=== PATIENT | male | born 1940 | race Caucasian/White ===

== ENCOUNTER → 2017-02-20 | Outpatient (CLI) | payer OTHER, MEDICARE ==
[~2017-02-20] MED LIST: APIX1TAB3 PO; ASPEC325 PO; ATOR-22 PO; CHOL100010 PO; FINA5TAB PO; LISI-729 PO; Lupron IM; METO25TA3 PO; METO50TA7 PO; MULT-506 PO; OMEG10007 PO
[2017-02-20 13:36] VITALS: BP 143/83; PULSE 84; TEMP 36.8; O2SAT 94
[2017-02-20 14:24] LABS: URINE APPEARANCE CLEAR (CLEAR); URINE BILIRUBIN NEG (NEG); URINE COLOR DK YELLOW; URINE NITRITE NEG (NEG); URINE PH 6.5 (4.5-7.5); URINE SPECIFIC GRAVITY 1.021 (1.000-1.030); UROBILINOGEN POS (NEG)
[2017-02-20 14:25] LABS: MANUAL MICROSCOPIC REQUIRED? NO; REVIEW REQ? NO
--- NOTE | 2017-02-20 15:16 | Radiation Oncology Follow-Up ---
Radiation Oncology Follow-Up Date of Visit Feb 20, 2017. Reason For Visit 6 month follow-up Radiation Completion Date Hormonal suppression;Seed implant on 06/08/14;RT 09/10/14 Diagnosis (1) Prostate cancer Status: Resolved Onset Date: 04/05/2014 Location: both lobes of the prostate Histology Subtype: adenocarcinoma Stage: ll (biopsy stage) Permanent Comment: Status post biopsy 04/05/2014 revealing adenocarcinoma [place] score 3+4, 4+3, and 4+4 Hormone suppression with Lupron initiated 05/04/2014 Status post prostate seed implant as boost 06/08/2014 utilizing cesium 131 and received 8500 cGy Status post IMRT/IGRT completed 09/10/2014 received 5040 cGy Plan total androgen deprivation for 12-18 months. Last Edited By: Zenobia Musa on Apr 06, 2015 15:31 Interim History He developed some urinary symptoms approximately 3 weeks ago. He stated this began as a burning discomfort that was quite severe. It happened with each time he had urination. He was current concerned that me may have passed a seed from a prior seed implant. He did not actually see a seed. He did not have any gross hematuria. He had [id number] Azo which she had previously taken while under going radiation therapy. This did relieve the discomfort. Discomfort has steadily improved and is nearly resolved. He's had no fever or chills. He has developed intermittent rectal bleeding. This is bright red in color. He reviewed this with Dr. Guzman. He has been scheduled for a colonoscopy. This will be performed on 03/15/2017. His last PSA was 2015. This was 0.060. Allergies Coded Allergies: No Known Allergies (Unverified , 06/08/14) Home Medications Scheduled Apixaban (Eliquis), 5 MG PO BID Aspirin (Aspirin *), 325 MG PO DAILY Atorvastatin (Lipitor), 20 MG PO DAILY Cholecalciferol (Vitamin D), 2,000 INTER.UNIT PO DAILY Finasteride (Proscar), 5 MG PO DAILY Fish Oil ([place]-3), 1 CAP PO BID Lisinopril (Prinivil), 2 MG PO BID Metoprolol Succ (Toprol Xl) (Toprol-Xl), 1 TAB PO BID Multivitamin (Multivitamin), 1 TAB PO DAILY Review of Systems Gastrointestinal: Symptoms: Constipation, Rectal Bleeding GI Comments: Constipation manageable at home;Takes stool softner w/relief; Oral: Symptoms: No Problems Respiratory: Symptoms: WNL Urinary: Comments: See below notations; Skin: Symptoms: No Problems Physical Exam Vital Signs Date Time Temp Pulse Resp B/P (MAP) Pulse Ox O2 Delivery O2 Flow Rate FiO2 02/20/17 13:36 36.8 84 20 143/83 94 Pain: Patient Pain Scale: 0 - 10 Initial Pain Intensity: 0.0 Fatigue: None General Appearance: no apparent distress Eyes: normal inspection, EOMI ENT: normal ENT inspection, hearing grossly normal Neck: no adenopathy, thyroid normal Respiratory/Chest: lungs clear, no respiratory distress, no accessory muscle use Cardiovascular: regular rate, rhythm, no gallop, no murmur Abdomen: non tender, soft, no organomegaly Anal / Rectum: Deferred. Patient stated he had recently had a rectal examination by Dr. Guzman 3 weeks ago. Extremities: no pedal edema Neurologic/Psychiatric: no motor/sensory deficits, alert, normal mood/affect Skin: warm/dry Laboratory Studies Test 11/29/16 11:22 02/20/17 14:00 02/20/17 14:06 Prothrombin Time 10.7 SECONDS (9.0-12.0) Prothrombin Time INR 1.0 (0.9-1.1) PTT 38.3 SECONDS (21.0-31.0) Partial Thromboplastin Ratio 1.5 PT Mixing Studies Interpretation PTT Mixing Studies Interpretation FACTOR INHIBITOR Lupus Anticoagulant see note Lupus Anticoagulant PTT 55 sec (<=40) Dilute Uvaldo Viper Venom (Lupus) 71 sec (<=45) Lupus Anticoag DRVVT Mix Ratio NOT CORRECTED (CORRECTED) dRVVT Mix Interpretation Positive Hexagonal Phase Confirmation Negative (Negative) Phospholipid Neutralization Positive (Negative) Urine Color DK YELLOW Urine Appearance CLEAR (CLEAR) Urine pH 6.5 (4.5-7.5) Urine Specific [place] 1.021 (1.000-1.030) Urine Protein NEG (NEG) Urine Glucose (UA) NEG (NEG) Urine Ketones NEG (NEG) Urine Occult Blood NEG (NEG) Urine Nitrite NEG (NEG) Urine Bilirubin NEG (NEG) Urine Urobilinogen POS (NEG) Urine Leukocyte Esterase NEG (NEG) Prostate Specific Antigen 0.621 ng/ml (0.000-4.000) Assessment & Plan Plan: PSA was drawn today. He'll and notified as to the results. He'll be undergoing the evaluation with the colonoscopy on March 15. We discussed that he may have radiation proctitis. We will await the final results. 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 He'll be notified as to results. He'll continue regular follow-up with Dr. Guzman. We asked him to return to our office in 1 year. We'll plan a PSA in 6 months. I'll send an order with his test results. Total Time In Follow-Up I spent 20 minutes speaking to the patient performing examination. I spent 15 minutes reviewing information in completing this note. Copy To Diamond Guzman M.D.
== END | disposition home or self-care (01) ==
LOC: C.ONC 13:10
PROVIDERS: ATTEND Physician Assistant Medical
DX: Z08 Encounter for follow-up examination after completed treatment for malignant neoplasm (principal); Z92.3 Personal history of irradiation; Z85.46 Personal history of malignant neoplasm of prostate

== ENCOUNTER 2018-12-08 06:50 | Inpatient (IN) ==
[2018-12-08] MEDS ORDERED: SODIUM CHLORIDE 0.9% 500 ML IV SCH (07:15)
--- NOTE | 2018-12-08 07:30 | Emergency Department Note ---
Entered by Monica Tirado acting as a scribe for Sony Singh MD History of Present Illness General Chief complaint: Altered Mental Status Stated complaint: ALTERED MENTAL STATUS Time Seen by Provider: 12/08/18 06:59 Source: patient and EMS Mode of arrival: EMS Limitations: no limitations History of Present Illness Provider complaint: AMS Onset (ago): day(s) (a few) Location: head Pain Consistency: + other (worsening) Quality: + other (confusion) Associated symptoms: + denies other symptoms (numbness, back pain, urinary) and + confusion; no chest pain, no cough, no headaches, no shortness of breath and no weakness The patient is a 78 year old male who presents to the Emergency Room via EMS for an evaluation of altered mental status. EMS reports that the patients family states that he has been confused for some time and that this has worsened over t he past few days. The patient notes that he does have a history of metastasized prostate cancer. He denies any back pain, headaches, numbness, weakness, urinary symptoms, chest pain or shortness of breath. He states that he did experience a fall recently while in the shower. He notes that he is currently on Xarelto. He denies any hematochezia or coughs. He also denies any recently alcohol use. Per EMS note, the patients blood sugar level was 141 en route. Home Medications Home Medications Medication Instructions Recorded Confirmed Type aspirin [Aspir-Low] 81 mg PO QAM 10/27/18 12/08/18 History atorvastatin 20 mg PO HS 10/27/18 12/08/18 History cholecalciferol (vitamin D3) 1,000 unit PO QAM 10/27/18 12/08/18 History multivitamin 1 tab PO QAM 10/27/18 12/08/18 History omega 9-mbz-sho-fish oil [Fish Oil] 1 cap PO BID 10/27/18 12/08/18 History amlodipine 2.5 mg PO QAM 11/16/18 12/08/18 History lisinopril 20 mg PO HS 11/16/18 12/08/18 History apixaban 2.5 mg tablet 5 mg PO BID 11/25/18 12/08/18 History oxycodone 10 mg tablet 10 mg PO Q4H PRN tab 11/25/18 12/08/18 History fentanyl 50 mcg/hr transdermal 1 patch TD Q72H 12/01/18 12/08/18 History patch acetaminophen [Tylenol Extra 500 mg PO Q6H PRN 12/08/18 12/08/18 History Strength] metoprolol tartrate 50 mg PO BID 12/08/18 12/08/18 History prednisone 20 mg PO BID 12/08/18 12/08/18 History Allergies Allergy/AdvReac Type Severity Reaction Status Date / Time No Known Allergies Allergy Verified 12/08/18 08:30 Past Med/Surg History Medical History AAA (abdominal aortic aneurysm) 3.3 cm infrarenal on 01/22/17 Aneurysm of heart FOLLOWS WITH DR. BASURTO>ANEURYSM "SMALL" Atrial fibrillation Cancer PROSTATE-RADIATION SEEDS Gout Hyperlipidemia Hypertension Lung mass NOTED FROM DR. 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/2 VESSELS REPAIR IN [facility] History of repair of rotator cuff LEFT History of tooth extraction Family History Other No significant family history Social History Preferred Language: Spanish Communication Ability: Effective Visual Impairment: No Limitations Beliefs That Will Affect Care: None Current Living Situation: Spouse Feels Safe at Home: Yes Smoking Status: Unknown if ever smoked Hx Alcohol Use: Yes Alcohol type: beer and wine Review of Systems See HPI for pertinent positives & negatives. and A total of 10 systems reviewed and were otherwise negative Physical Exam Vital Signs Vital Signs - 24 hr 12/08/18 06:56 12/08/18 06:59 12/08/18 07:00 Temperature Temperature Source Sepsis Recent Fever Within 48 Hours Sepsis Action Taken by Nursing Pulse Rate 87 95 H 92 H Pulse Rate from SpO2 Sensor 91 H 90 Pulse Rhythm Pulse Strength Respiratory Rate 17 29 H 17 Respiratory Effort / Characteristics Respiratory Depth Respiratory Pattern Blood Pressure 135/83 Blood Pressure Mean 100 Blood Pressure Position Pulse Oximetry 93 86 L Oxygen Delivery Method 12/08/18 07:01 12/08/18 07:30 12/08/18 07:58 Temperature 36.7 C Temperature Source Oral Sepsis Recent Fever Within 48 Hours No Sepsis Action Taken by Nursing No Action Required Pulse Rate 98 H 91 H 92 H Pulse Rate from SpO2 Sensor 93 H 96 H 85 Pulse Rhythm Regular Pulse Strength Normal Respiratory Rate 33 H 16 16 Respiratory Effort / Characteristics Non-Labored Spontaneous Respiratory Depth Normal Respiratory Pattern Regular Blood Pressure 123/92 120/85 Blood Pressure Mean 102 96 Blood Pressure Position Lying Pulse Oximetry 93 96 95 Oxygen Delivery Method Room Air 12/08/18 08:00 12/08/18 08:01 12/08/18 08:30 Temperature Temperature Source Sepsis Recent Fever Within 48 Hours Sepsis Action Taken by Nursing Pulse Rate 91 H 88 92 H Pulse Rate from SpO2 Sensor 91 H 90 89 Pulse Rhythm Pulse Strength Respiratory Rate 22 14 12 Respiratory Effort / Characteristics Respiratory Depth Respiratory Pattern Blood Pressure 135/86 Blood Pressure Mean 102 Blood Pressure Position Pulse Oximetry 91 95 96 Oxygen Delivery Method 12/08/18 08:31 12/08/18 09:00 12/08/18 09:01 Temperature Temperature Source Sepsis Recent Fever Within 48 Hours Sepsis Action Taken by Nursing Pulse Rate 89 99 H 102 H Pulse Rate from SpO2 Sensor 94 H 100 H 101 H Pulse Rhythm Pulse Strength Respiratory Rate 12 20 13 Respiratory Effort / Characteristics Respiratory Depth Respiratory Pattern Blood Pressure 124/73 142/103 H Blood Pressure Mean 90 116 Blood Pressure Position Pulse Oximetry 95 97 88 L Oxygen Delivery Method General: Non-ill appearing older male in no acute distress. HEENT: Normal cephalic atraumatic. Pupils are equal round and reactive to light. Extraocular movements are intact. Oropharynx is pink with moist mucous membranes. No swelling of the mouth lips or tongue. Neck: Supple with a midline trachea. No meningeal signs or stiffness, no JVD or bruits. No Stridor. Chest: Clear to auscultation bilaterally. No wheezes or rhonchi. No increased work of breathing. Heart: regular rate and rhythm. Abdomen: Soft nontender, nondistended without rebound guarding or rigidity. Extremities: No cyanosis clubbing or edema. No calf tenderness or asymmetry Spine/Back. Non tender to palpation. No CVA tenderness Skin: Good turgor without rashes. Neurologic exam: Cranial nerves two through 12 are intact. Motor and sensation are intact and symmetrical throughout. Answers some questions appropriately. Does not know the date. Does seem confused. Course 0703: Past medical records reviewed. The patient was evaluated in room B7. A complete history and physical examination was performed. 0750: The patient is in CT. I spoke with the patients daughter who reports that the patient has been increasingly confused to the point where he tried to leave the house in the middle of the night to go to work. She explains that they are unable to care for him. 0828: I discussed the patient's case with Dr. Pablo Wolfe Hospitalist. He will evaluate the patient for further management. Administered Medications Acetaminophen (Tylenol) 500 mg PO Q6H PRN PRN Reason: Pain Stop: 01/07/19 11:07 Last Admin: 12/08/18 12:21 Dose: 500 mg Documented by: [id number] Calcium Carbonate (Tums) 500 mg PO DAILY PRN PRN Reason: Indigestion Stop: 01/07/19 13:24 Last Admin: 12/08/18 13:28 Dose: 500 mg Documented by: [id number] Lidocaine (Lidoderm 5%) 1 patch TD QAM TONY Stop: 01/07/19 12:29 Last Admin: 12/08/18 13:50 Dose: 1 patch Documented by: [id number] Discontinued Medications Sodium Chloride (Nss) 500 mls @ 999 mls/hr IV .Q31M TONY Stop: 12/08/18 07:45 Last Infusion: 12/08/18 08:36 Dose: 0 mls/hr Documented by: [id number] Admin: 12/08/18 07:39 Dose: 999 mls/hr Documented by: [id number] Medical Decision Making Differential Diagnosis Differential diagnosis includes: cancer complication, trauma, intracranial process, infection, cardiac disease, electrolyte and metabolic abnormality. Medical Records Attestation: I reviewed the patient's medical records. Home Medications Current Medication List: was personally reviewed by me Laboratory Data Attestation: I reviewed the patient's lab results. Result diagrams: 12/08/18 07:37 12/08/18 07:37 Lab Results 12/08/18 12/08/18 12/08/18 Range/Units 07:37 07:37 07:37 WBC 8.50 (4.8-10.8) K/uL RBC 5.09 (4.7-6.1) M/uL Hgb 16.1 (14.0-18.0) g/dL Hct 44.1 (42-52) % MCV 86.6 (80-100) fL MCH 31.6 (25-34) pg MCHC 36.5 H (32-36) g/dL RDW Std Deviation 45.7 (36.4-46.3) fL RDW Coeff of [place] 14.4 (11.5-14.5) % Plt Count 277 (130-400) K/uL MPV 9.3 (7.4-10.4) fL Immature Gran % (Auto) 0.6 % Neut % (Auto) 77.4 % Lymph % (Auto) 7.5 % [place] % (Auto) 12.4 % Eos % (Auto) 1.9 % Baso % (Auto) 0.2 % Immature Gran # (Auto) 0.05 H (0.00-0.02) K/uL Neut # (Auto) 6.58 H (1.4-6.5) K/uL Lymph # (Auto) 0.64 L (1.2-3.4) K/uL [place] # (Auto) 1.05 H (0.11-0.59) K/uL Eos # (Auto) 0.16 (0-0.5) K/uL Baso # (Auto) 0.02 (0-0.2) K/uL ESR (0-14) mm/hr PT 10.5 (9.0-12.0) Seconds INR 1.0 (0.9-1.1) APTT 27.9 (21.0-31.0) Seconds PTT Ratio 1.0 Sodium 141 (136-145) mmol/L Potassium 3.8 (3.5-5.1) mmol/L Chloride 106 (98-107) mmol/L Carbon Dioxide 28 (21-32) mmol/L Anion Gap 7.0 (3-11) BUN 15 (7-18) mg/dl Creatinine 0.86 (0.6-1.4) mg/dl Est Cr Clr Drug Dosing 76.6 ml/min Est GFR ( Amer) 96.9 Est GFR (Non-Af Amer) 83.6 BUN/Creatinine Ratio 17.2 (10-20) Glucose 85 (70-99) mg/dl Uric Acid (2.6-7.2) mg/dl Calcium 10.2 H (8.5-10.1) mg/dl Magnesium 2.4 (1.8-2.4) mg/dl Total Bilirubin 1.0 (0.2-1) mg/dl AST 24 (15-37) U/L ALT 29 (12-78) U/L Alkaline Phosphatase 78 (45-117) U/L Troponin I < 0.015 (0-0.045) ng/ml C-Reactive Protein (0-0.29) mg/dl Total Protein 8.1 (6.4-8.2) gm/dl Albumin 3.8 (3.4-5.0) gm/dl Globulin 4.3 H (2.5-4.0) gm/dl Albumin/Globulin Ratio 0.9 (0.9-2) TSH 1.360 (0.300-4.500) uIu/ml Urine Color Urine Appearance (Clear) Urine pH (4.5-7.5) Ur Specific [place] (1.000-1.030) Urine Protein (Negative) Urine Glucose (UA) (Negative) Urine Ketones (Negative) Urine Blood (Negative) Urine Nitrite (Negative) Urine Bilirubin (Negative) Urine Urobilinogen (Negative) Ur Leukocyte Esterase (Negative) 12/08/18 12/08/18 12/08/18 Range/Units 07:37 07:37 09:05 WBC (4.8-10.8) K/uL RBC (4.7-6.1) M/uL Hgb (14.0-18.0) g/dL Hct (42-52) % MCV (80-100) fL MCH (25-34) pg MCHC (32-36) g/dL RDW Std Deviation (36.4-46.3) fL RDW Coeff of [place] (11.5-14.5) % Plt Count (130-400) K/uL MPV (7.4-10.4) fL Immature Gran % (Auto) % Neut % (Auto) % Lymph % (Auto) % [place] % (Auto) % Eos % (Auto) % Baso % (Auto) % Immature Gran # (Auto) (0.00-0.02) K/uL Neut # (Auto) (1.4-6.5) K/uL Lymph # (Auto) (1.2-3.4) K/uL [place] # (Auto) (0.11-0.59) K/uL Eos # (Auto) (0-0.5) K/uL Baso # (Auto) (0-0.2) K/uL ESR 38 H (0-14) mm/hr PT (9.0-12.0) Seconds INR (0.9-1.1) APTT (21.0-31.0) Seconds PTT Ratio Sodium (136-145) mmol/L Potassium (3.5-5.1) mmol/L Chloride (98-107) mmol/L Carbon Dioxide (21-32) mmol/L Anion Gap (3-11) BUN (7-18) mg/dl Creatinine (0.6-1.4) mg/dl Est Cr Clr Drug Dosing ml/min Est GFR ( Amer) Est GFR (Non-Af Amer) BUN/Creatinine Ratio (10-20) Glucose (70-99) mg/dl Uric Acid 4.1 (2.6-7.2) mg/dl Calcium (8.5-10.1) mg/dl Magnesium (1.8-2.4) mg/dl Total Bilirubin (0.2-1) mg/dl AST (15-37) U/L ALT (12-78) U/L Alkaline Phosphatase (45-117) U/L Troponin I (0-0.045) ng/ml C-Reactive Protein 0.78 H (0-0.29) mg/dl Total Protein (6.4-8.2) gm/dl Albumin (3.4-5.0) gm/dl Globulin (2.5-4.0) gm/dl Albumin/Globulin Ratio (0.9-2) TSH (0.300-4.500) uIu/ml Urine Color Yellow Urine Appearance Clear (Clear) Urine pH 7.0 (4.5-7.5) Ur Specific [place] 1.022 (1.000-1.030) Urine Protein Negative (Negative) Urine Glucose (UA) Negative (Negative) Urine Ketones Negative (Negative) Urine Blood Negative (Negative) Urine Nitrite Negative (Negative) Urine Bilirubin Negative (Negative) Urine Urobilinogen Negative (Negative) Ur Leukocyte Esterase Negative (Negative) Imaging Data Radiologist's Impression: Radiology results as stated below per my review and the radiologist's interpretation: XR chest 1V portable CLINICAL HISTORY: weakness mental status change. Dyspnea. COMPARISON STUDY: 11/07/2018 FINDINGS: Moderate cardiomegaly. Prior median sternotomy. Subtle increase in density left base unchanged in the prior study. Slight increase in density right upper lung although this is improved from the prior study read IMPRESSION: 1. Slight decrease in volume of a right upper lobe mass. 2. Moderate stable cardiomegaly. 3. Increased density left base unchanged from the prior exam. The above report was generated using voice recognition software. It may contain grammatical, syntax or spelling errors. Electronically signed by: Anish Walker M.D. 12/08/2018 7:[address] head/brain wo con CT DOSE: 614.27 mGy.cm HISTORY: Mental status change ALTERED LOC TECHNIQUE: Multiaxial CT images of the head were performed without the use of intravenous contrast. A dose lowering technique was utilized adhering to the principles of ALARA. Comparison: None. Findings: The paranasal sinuses and mastoid air cells are clear. The calvarium and skull base are intact. The ventricles and sulci are within normal limits. There is no mass, hematoma, midline shift, or acute infarct. Mild age-related atrophy and chronic small vessel change. Impression: No acute intracranial abnormality. Age-related change. The above report was generated using voice recognition software. It may contain grammatical, syntax or spelling errors. Electronically signed by: Anish Walker M.D. 12/08/2018 7:59 AM ECG Data Attestation: I personally reviewed and interpreted this ECG as follows: Indication: altered mental status Rate (beats per minute): 93 Rhythm: atrial fibrillation Findings: + other (non-specific T wave abnormality); no acute ischemic change Comparison ECG Date: from (24-MAY-2014) Change: the following changes noted (a-fib has replaced sinus isidro) Blood Pressure Blood Pressure Findings: Normal blood pressure Blood Pressure Disposition: did not require urgent referral MDM Narrative This patient comes in as described above. He is being treated for prostate cancer with metastases to his back and bones. He was more confused today apparently he does tell me how he had radiation yesterday which was Saturday which I think is unlikely. he does answer some questions appropriately and he does not know the date so he does seem more confused. I have seen him before and I think this is different. He denies any fever or urinary symptoms. He is been having back and hip pain. he did apparently have an injection. He also told me he may have fallen yesterday and he is on Xarelto. He may have hit his head. There is no external signs of trauma I did do a CAT scan of his head. IV access established multiple blood testing was obtained EKG and urinalysis were also ordered. He was reassessed frequently. CAT scan of his head is unremarkable. EKG does not suggest acute coronary syndrome or significant arrhythmia he has no significant electrolyte or metabolic abnormalities. I talked to his daughter at length she is very concerned about him being at home and does not feel that he is safe. I do think he should be admitted/observe for altered mental status it could be related to medications or his prostate cancer or other etiology. I have consulted the [facility] hospitalist to see in the ER for these measures. Impression & Plan Altered mental status, Weakness, Prostate cancer Discharge Plan Visit Data *Final* Discharge Date/Time: 12/08/18 10:53 Chief Complaint: Altered Mental Status Stated Complaint: ALTERED MENTAL STATUS ED Provider: Sony Singh Discharge Problem: Altered mental status, Weakness, Prostate cancer Patient Disposition: Admitted As Inpatient Discharge Instructions Interventions: ED Discharge Assessment Last Done: 12/08/18 10:53 Discharge Problem: Altered mental status Qualifiers: Altered mental status type: unspecified Qualified Code(s): R41.82 - Altered mental status, unspecified The scribe's documentation has been prepared under my direction and personally reviewed by me in its entirety. I confirm that the note above accurately reflects all work, treatment, procedures, and medical decision making performed by me.
[2018-12-08 07:50] LABS: Basophils # (auto) 0.02 K/uL (0-0.2); Basophils % (auto) 0.2 %; Eosinophils # (auto) 0.16 K/uL (0-0.5); Eosinophils % (auto) 1.9 %; Hematocrit (blood only) 44.1 % (42-52); Hemoglobin 16.1 g/dL (14.0-18.0); Immature Granulocytes # (auto) 0.05 K/uL (0.00-0.02); Immature Granulocytes % (auto) 0.6 %; Lymphocytes # (auto) 0.64 K/uL (1.2-3.4); Lymphocytes % (auto) 7.5 %; Mean Corpuscular Hgb Conc 36.5 g/dL (32-36); Mean Corpuscular Volume 86.6 fL (80-100); Mean Platelet Volume 9.3 fL (7.4-10.4); Monocytes # (auto) 1.05 K/uL (0.11-0.59); Monocytes % (auto) 12.4 %; Neutrophils # (auto) 6.58 K/uL (1.4-6.5); Neutrophils % (auto) 77.4 %; Platelet Count 277 K/uL (130-400); RDW Coefficient of Variation 14.4 % (11.5-14.5); RDW Standard Deviation 45.7 fL (36.4-46.3); Red Blood Count 5.09 M/uL (4.7-6.1)
--- NOTE | 2018-12-08 08:01 | CT Scan Report ---
CT head/brain wo con CT DOSE: 614.27 mGy.cm HISTORY: Mental status change ALTERED LOC TECHNIQUE: Multiaxial CT images of the head were performed without the use of intravenous contrast. A dose lowering technique was utilized adhering to the principles of ALARA. Comparison: None. Findings: The paranasal sinuses and mastoid air cells are clear. The calvarium and skull base are int act. The ventricles and sulci are within normal limits. There is no mass, hematoma, midline shift, or acute infarct. Mild age-related atrophy and chronic small vessel change. Impression: No acute intracranial abnormality. Age-related change. The above report was generated using voice recognition software. It may contain grammatical, syntax or spelling errors. Electronically signed by: Anish Walker M.D. 12/08/2018 7:59 AM
[2018-12-08 08:02] LABS: Partial Thromboplastin Time 27.9 Seconds (21.0-31.0); Prothrombin Time 10.5 Seconds (9.0-12.0)
[2018-12-08 08:06] LABS: Alanine Aminotransferase 29 U/L (12-78); Albumin Level 3.8 gm/dl (3.4-5.0); Aspartate Aminotransferase 24 U/L (15-37); BUN Creatinine Ratio 17.2 (10-20); Blood Urea Nitrogen 15 mg/dl (7-18); Calcium 10.2 mg/dl (8.5-10.1); Carbon Dioxide 28 mmol/L (21-32); Chloride 106 mmol/L (98-107); Creatinine Clr Calc Pharmacy 76.6 ml/min; Est GFR (African American) 96.9; Est GFR (Non-African American) 83.6; Glucose 85 mg/dl (70-99); Magnesium 2.4 mg/dl (1.8-2.4); Potassium 3.8 mmol/L (3.5-5.1); Sodium 141 mmol/L (136-145)
[2018-12-08 08:17] LABS: Albumin Globulin Ratio 0.9 (0.9-2); Alkaline Phosphatase 78 U/L (45-117); Globulin 4.3 gm/dl (2.5-4.0); Total Protein 8.1 gm/dl (6.4-8.2); Troponin I < 0.015 ng/ml (0-0.045)
[2018-12-08 09:36] LABS: Appearance Urine Clear (Clear); Bilirubin Urine Negative (Negative); Blood Urine Negative (Negative); Color Urine Yellow; Glucose Urine UA Negative (Negative); Ketones Urine Negative (Negative); Leukocyte Esterase Urine Negative (Negative); Nitrite Urine Negative (Negative); Protein Urine Negative (Negative); Specific Gravity Urine 1.022 (1.000-1.030); Urobilinogen Urine Negative (Negative)
[2018-12-08 09:40] LABS: C Reactive Protein 0.78 mg/dl (0-0.29); Uric Acid 4.1 mg/dl (2.6-7.2)
--- NOTE | 2018-12-08 09:43 | History & Physical Report ---
Date of Service December 08, 2018 Assessment & Plan (1) Altered mental status: -presentation for progressive changes in mental status -CT head negative for stroke -rule out infections by sending urine analysis and blood cultures -dementia workup: send labs B12, folic acid levels, RPR -send ESR and CRP however these may be high given history of malignancy -check uric acid -minimize home dose narcotic medications for now and titrate as needed to minimize delirium and sedation Malignancy Chart review shows -Hx: prostate CA -Metastatic non-small lung CA -Recent RUL mass with invasion to R 4th rib. 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 -hold off radiation treatments for now -check uric acid levels in case of tumor lysis syndrome as a cause of mental status changes -consult patient's oncology service if any further recommendations or history about malignancy -minimize home dose narcotic medications for now and titrate as needed to minimize delirium and sedation Chronic atrial fibrillation -continue BID apixaban -continue home dose metoprolol and statin Hypertension -blood pressure controlled -continue home dose lisinopril PT/OT evaluations DVT ppx: apixaban Full Code History of Present Illness Chief Complaint: altered mental status Primary Care Provider: Diamond Guzman This is a 78 year old male who follows with primary acre doctor Dr. Guzman with malignancy who follows with Dr. Justice for cancer treatment and was actually due for radiatio treatment on 12/08/18 at [facility]. Patient's daughter Karen [phone] brought patient in with concerns that patient has been having progressive changes in mental status. Reports that patient lives with who has disability. Reports that patient has been having periods of confusion such as reporting that he is seeing things that are not there, more forgetful, trying to leave the house to go to work when he does not have work. Daughter reports that patient has been retired from month from work 1 month ago. Patient insists he is still employed. Patient reports that the year is 1998 instead of 2018. He knows the month is November. When asked who is the vice president of contracts, patient does not recall and then says he has trouble with remembering names. CT head on admission is negative for stroke. Patient does not appear to have gross motor deficits on exam. At baseline, patient's daughter reports that he uses cane or walker and not very mobile at home. Patient denies fever. denies acute pain. patient is awake and cooperative on exam. denies problems with urination or with bowel movements. denies vomiting Allergies Allergy/AdvReac Type Severity Reaction Status Date / Time No Known Allergies Allergy Verified 12/08/18 08:30 Home Medications Home Medications Medication Instructions Recorded Confirmed Type aspirin [Aspir-Low] 81 mg PO QAM 10/27/18 12/08/18 History atorvastatin 20 mg PO HS 10/27/18 12/08/18 History cholecalciferol (vitamin D3) 1,000 unit PO QAM 10/27/18 12/08/18 History multivitamin 1 tab PO QAM 10/27/18 12/08/18 History omega 7-pik-odp-fish oil [Fish Oil] 1 cap PO BID 10/27/18 12/08/18 History amlodipine 2.5 mg PO QAM 11/16/18 12/08/18 History lisinopril 20 mg PO HS 11/16/18 12/08/18 History apixaban 2.5 mg tablet 5 mg PO BID 11/25/18 12/08/18 History oxycodone 10 mg tablet 10 mg PO Q4H PRN tab 11/25/18 12/08/18 History fentanyl 50 mcg/hr transdermal 1 patch TD Q72H 12/01/18 12/08/18 History patch acetaminophen [Tylenol Extra 500 mg PO Q6H PRN 12/08/18 12/08/18 History Strength] metoprolol tartrate 50 mg PO BID 12/08/18 12/08/18 History prednisone 20 mg PO BID 12/08/18 12/08/18 History Past Med/Surg History Medical History AAA (abdominal aortic aneurysm) 3.3 cm infrarenal on 01/22/17 Aneurysm of heart FOLLOWS WITH DR. BASURTO>ANEURYSM "SMALL" Atrial fibrillation Cancer PROSTATE-RADIATION SEEDS Gout Hyperlipidemia Hypertension Lung mass NOTED FROM DR. 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/2 VESSELS REPAIR IN [facility] History of repair of rotator cuff LEFT History of tooth extraction Family History Other No significant family history Social History Preferred Language: Tunisian Communication Ability: Effective Visual Impairment: No Limitations Beliefs That Will Affect Care: None Current Living Situation: Spouse Feels Safe at Home: Yes Smoking Status: Unknown if ever smoked Hx Alcohol Use: Yes Alcohol type: beer, wine and hard liquor Hx Substance Use: No Review of Systems Review of Systems: All systems reviewed & are unremarkable except as noted in HPI & below Physical Exam Constitutional: well developed Eyes: PERRL, conjunctivae normal, anicteric sclerae EOM intact bilaterally ENMT: external ear and nose normal, oropharynx normal Neck: trachea midline, no thyromegaly normal visual inspection Respiratory: normal respiratory effort, lungs clear to auscultation Cardiovascular: Rate/Rhythm: + tachycardic and + irregularly irregular Gastrointestinal (Abdomen): normal bowel sounds, soft, nontender, no hepatosplenomegaly Musculoskeletal: Head/Neck/Chest: normocephalic and head atraumatic Neurologic: PERRL, EOMI, accommodation nl, no face palsy, no dysarthria Psychiatric: Orientation: alert, oriented to place and cooperative Results & Data Vital Signs (Past 12 Hours) Vital Signs Temp Pulse Resp BP Pulse Ox 12/08/18 09:00 99 H 20 97 12/08/18 08:31 89 12 124/73 95 12/08/18 08:30 92 H 12 96 12/08/18 08:01 88 14 135/86 95 12/08/18 08:00 91 H 22 91 12/08/18 07:58 92 H 16 120/85 95 12/08/18 07:30 91 H 16 96 12/08/18 07:01 36.7 C 98 H 33 H 123/92 93 12/08/18 07:00 92 H 17 12/08/18 06:59 95 H 29 H 86 L 12/08/18 06:56 87 17 135/83 93 (1) Altered mental status Altered mental status type: unspecified Qualified Code(s): R41.82 - Altered mental status, unspecified
[2018-12-08 10:57] LABS: Folate (Folic Acid) > 24.00 ng/ml (>5.38); Vitamin B12 721 pg/ml (211-911)
[2018-12-08] MEDS: ACETAMINOPHEN 500 MG TAB PO PRN (12:21)
[2018-12-08] MEDS ORDERED: CALCIUM CARBONATE 500 MG CHEWABLE TAB PO PRN (13:25)
[2018-12-08] MEDS: LIDOCAINE 5% 1 PATCH TD SCH (13:50)
[2018-12-08] MEDS ORDERED: OXYCODONE HCL IR 5 MG TAB (IMMEDIATE RELEASE) PO PRN (16:09)
[2018-12-08] MEDS ORDERED: HALOPERIDOL LACTATE 5 MG/ML 1 ML VIAL IV STA (17:40)
[2018-12-08] MEDS ORDERED: HALOPERIDOL LACTATE 5 MG/ML 1 ML VIAL IM ONE (17:52)
[2018-12-08] MEDS ORDERED: HALOPERIDOL LACTATE 5 MG/ML 1 ML VIAL ONE (17:54)
[2018-12-08] MEDS: HYDROmorphone INJ 0.5 MG/0.5 ML SYR IV PRN (19:21)
[2018-12-08] MEDS: SENNA 8.6 MG TAB PO SCH (19:22)
[2018-12-08] MEDS ORDERED: HALOPERIDOL LACTATE 5 MG/ML 1 ML VIAL IM STA (20:20)
[2018-12-08] MEDS: ATORVASTATIN 20 MG TAB PO SCH (20:33)
[2018-12-08] MEDS: APIXABAN 5 MG TABLET PO SCH (20:33)
[2018-12-08] MEDS: LISINOPRIL 20 MG TAB PO SCH (20:34)
[2018-12-08] MEDS: METOPROLOL TARTRATE 50 MG TAB PO SCH (20:34)
[2018-12-08] MEDS: DOCUSATE SODIUM 100 MG CAP PO SCH (20:34)
[2018-12-08] MEDS ORDERED: HYDROmorphone INJ 1 MG/ML SYRINGE IV STA (21:04)
[2018-12-08] MEDS ORDERED: LORazepam 1 MG/2 ML VIAL IV STA (23:00)
[2018-12-09] MEDS ORDERED: LORazepam 0.5 MG/1 ML VIAL IV STA (05:55)
--- NOTE | 2018-12-09 08:38 | Hospitalist Progress Note ---
Date of Service December 09, 2018 Assessment & Plan (1) Altered mental status: Altered mental status: -presentation for progressive changes in mental status on 12/08/18; patient awake and speaking but patient's daughter concerned about problems with confusion and visual hallucinations -CT head negative for stroke -urine analysis negative, blood cultures from 12/08/18 are pending, WBC are normal so unlikely that changes in mental status are from infection -B12 normal, folic acid levels normal, TSH normal, RPR pending -normal uric acid levels -ESR is 38 but expect some inflammation given history of malignancy -initial workup on admission of impression that perhaps excessive use of narcotics may have been contributory to patient's delirium at home, possibly from recent increases in fentanyl patches recently, pain control has been difficult given trying to minimize side effects of narcotics and controlling patient's pain and agitation; -Overnight because of agitation and concern that patient was being was aggressive to staff and with pain, patient had received sedation medications of haldol 2.5 mg x 2 and a dose of ativan and pain medications -will at this time resume patients oxycodone as 10 mg q4 hours prn and hold off further Fentanyl patches; will use Lidocaine patches to affected pain areas which is usually the hips; will give prn diluadid for severe pain -minimize home dose narcotic medications for now and titrate as needed to minimize delirium and sedation Metastatic cancer: history or prostate cancer and Metastatic non-small lung CA recent PET scan prior to this admission 1. There is a 4.1 cm spiculated mass lesion at the right apex consistent with the reported history of lung cancer. 2. There are at least 2 adjacent subcentimeter satellite nodules in the right upper lobe. 3. There are FDG avid right supraclavicular, right hilar, and mediastinal lymph nodes consistent with metastatic disease. 4. There is a solitary hepatic metastasis. 5. 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 6. The large L2 lesion causes pathologic fracture, and there is soft tissue invasion posteriorly which causes mild acquired compromise of the central canal and impinges on the thecal sac. 7. Emphysema. 8. Cardiomegaly. 9. There is aneurysmal dilatation of the ascending thoracic aorta which measures up to 4.9 cm. 10. There is a 3.3 cm infrarenal abdominal aortic aneurysm. -awaiting oncology note from Dr. Justice for further history and follow up of malignancy -consult radiation oncology Dr. Flores as patient missed radiation therapy on 12/08/18 due to hospital presentation; Dr. 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 Overnight because of agitation and concern that patient was being was aggressive to staff and with pain, patient had received sedation medications of haldol 2.5 mg x 2 and a dose of ativan and pain medications. Patient seen and examined this morning. He is generally somnolent, asleep. Patient does respond to tactile stimuli but not awake enough to speak. no acute distress. review of telemetry shows atrial fibrillation which is chronic and rate is controlled. Physical Exam Physical Exam: General: Patient seen and examined this morning. He is generally somnolent, asleep. Patient does respond to tactile stimuli but not awake enough to speak. no acute distress. review of telemetry shows atrial fibrillation which is chronic and rate is controlled Eye exam: deferred Respiratory: cleat to auscultation bilaterally Heart:atrial fibrillation, heart rate in the 80s Abdomen: bowel sounds present Extremities: no swelling of extremities Results & Data Vital Signs (Past 12 Hours) Vital Signs Temp Pulse Pulse Resp BP Pulse Ox 12/09/18 06:44 37.0 C 92 H 15 107/76 99 12/09/18 03:33 36.9 C 100 H 16 139/82 100 12/09/18 00:11 81 12/08/18 23:20 36.6 C 104 H 19 128/80 93 (1) Altered mental status Altered mental status type: unspecified Qualified Code(s): R41.82 - Altered mental status, unspecified
[2018-12-09] MEDS: ASPIRIN 81 MG ECTAB PO SCH (09:36)
[2018-12-09] MEDS: DOCUSATE SODIUM 100 MG CAP PO SCH ×2 (09:36→19:39)
[2018-12-09] MEDS: APIXABAN 5 MG TABLET PO SCH ×2 (10:25→19:39)
[2018-12-09] MEDS: METOPROLOL TARTRATE 50 MG TAB PO SCH ×2 (10:25→19:38)
[2018-12-09] MEDS: AMLODIPINE BESYLATE 5 MG TAB PO SCH (10:25)
[2018-12-09] MEDS: SENNA 8.6 MG TAB PO SCH (10:26)
[2018-12-09] MEDS: LIDOCAINE 5% 1 PATCH TD SCH (10:26)
--- NOTE | 2018-12-09 11:00 | Consultation Report ---
DATE OF CONSULTATION: 12/09/2018 MEDICAL ONCOLOGY CONSULTATION REASON FOR CONSULTATION: Delirium in a 78-year-old gentleman with recent diagnosis of metastatic nonsmall cell lung cancer. HISTORY OF PRESENT ILLNESS: Mr. Kirill Bae is a pleasant 78-year-old gentleman well known to [facility] with recent diagnosis of metastatic nonsmall cell lung cancer admitted to [facility] on December 08 with altered mental status. The patient's daughter, Karen, who brought him to the Emergency Room, concerns the patient had been in progressive changes in mental status. The patient apparently who resides with his with an underlying disability was experiencing periods of confusion and describing visual hallucinations more forgetful, trying to leave the house to go to work when he is no longer employed. The patient apparently was disoriented to time and could not remember the President of [facility]. Unfortunately at bedside, Kirill was agitated, delirious and was not readily following commands. Nursing reports Kirill had 2 fentanyl patches applied at the time of admission. I had seen Mr. Bae back on 24 of November when the diagnosis of metastatic nonsmall cell lung cancer was established. At that time, he was recommended to receive palliative radiation therapy in preparation to receive salvage chemotherapy. The focus of that visit was pain control, which was suboptimal at that time. According to my clinical notes, he was prescribed fentanyl 25 mcg topically q. 72 hours and increased the oxycodone to 10 mg every 4-6 hours as needed. Considering the fact he had 2 fentanyl patches applied on admission suggests that this may indeed be drug-induced delirium. Background history involving Mr. Bae includes previous consultation, specifically for prolonged PTT, which was attributable to lupus anticoagulant, was last seen in 2017. I had not seen Mr. Bae since that time. Apparently, he was sent back with new diagnosis of metastatic non-small cell lung cancer established by Dr. Jayce Garcia because of a mass 3.7 cm involving the right upper lobe, metastatic right pleural implant with direct invasion into the right posterior rib. Biopsies were carried out, confirming the diagnosis of adenocarcinoma; however, he had not had complete staging imaging. Clearly though, he suffers from stage IV disease. PD-L1 biomarker was completed and unfortunately has 0% expression; therefore, not a candidate for salvage pembrolizumab. My plan was to treat him with combination [place] and [place] versus paclitaxel, carboplatin and bevacizumab moving forward. Ultimately, he was to complete palliative radiation therapy and start chemotherapy within the next week or two. PAST MEDICAL HISTORY: Includes AAA, atrial fibrillation, prostate cancer, gout, hyperlipidemia, hypertension, osteoarthritis. PAST SURGICAL HISTORY: Includes eye surgery, prostate biopsy, appendectomy, cardiac catheterization, cataract surgery, colonoscopy, coronary artery bypass grafting, repair of left rotator cuff and tooth extraction. MEDICATIONS: Prior to admission include aspirin 81 mg p.o. daily, atorvastatin 20 mg p.o. at bedtime, cholecalciferol 1000 units p.o. daily, multivitamin 1 tablet p.o. daily, omega-3 fish oil 1 capsule p.o. b.i.d., amlodipine 2.5 mg p.o. q.a.m., lisinopril 20 mg p.o. at bedtime, apixaban 5 mg p.o. b.i.d., oxycodone 10 mg p.o. q. 4 hours p.r.n., fentanyl patch 25 mcg, subdermally q. 72 hours, acetaminophen 500 mg p.o. q. 6 hours p.r.n., metoprolol 50 mg p.o. b.i.d., prednisone 20 mg p.o. b.i.d. ALLERGIES: No known drug allergies. 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 He did continue to work part-time until recently. He was 2-pack per day smoker for 30-35 years and has stopped completely. FAMILY HISTORY: No history of coagulopathy or neoplasia. REVIEW OF SYSTEMS: Unobtainable because of the patient's mental status. PHYSICAL EXAMINATION: GENERAL: Again, 78-year-old gentleman delirious, unable to follow commands, does not appear to be in distress, however. VITAL SIGNS: Temperature 37, pulse 92, respiratory rate 15, blood pressure 107/76. SKIN: Pale without rash or lesion. HEENT: Head is atraumatic, normocephalic. Ocular examination not done. Nares are patent without rhinorrhea or discharge. Throat clear. Mucous membranes are dry. NECK: Supple. Trachea midline. HEART: Regular rate and rhythm. LUNGS: Clear to auscultation bilaterally. ABDOMEN: Soft, nontender, nondistended. EXTREMITIES: No clubbing, cyanosis or edema. MUSCULOSKELETAL: Strength not performed. Pulses are equal in all 4 quadrants. NEUROLOGIC: Again, incomplete because of delirium. LABORATORY DATA: WBC count 8500, hemoglobin 16.1, platelet count 277,000. Calcium 10.2, magnesium 2.4, sodium 141, potassium 3.8, chloride 106, carbon dioxide 28, creatinine 0.86, BUN 15. Microbiology: Blood cultures pending. RADIOGRAPHIC DATA: CT of the head reveals no intracranial anomaly. IMPRESSION: 1. Altered mental status, probable drug delirium. 2. Metastatic nonsmall cell lung cancer. 3. History of prostate cancer. 4. Chronic atrial fibrillation. 5. Hypertension. PLAN: In summary, Mr. Bae is a pleasant 78-year-old gentleman well known to [facility] with a recent diagnosis of metastatic nonsmall cell lung cancer. Again, in review, I saw Mr. Bae on 24 of November at which time was struggling with uncontrolled pain. Recommended palliative XRT, which is underway in addition to fentanyl patch 25 mcg topically q. 72 hours and increase breakthrough oxycodone 10 mg p.o. q. 4-6 hours p.r.n. Mr. Bae apparently had 2 fentanyl patches applied upon admission which is beyond the prescribed dose. I would also inquire about his oxycodone intake during that time leading up to the admission. Perhaps a pill count as the prescription was recently filled for 90 tablets if I recall correctly. Moving forward, I would discontinue fentanyl completely and control his pain intravenously until his mental status improves. There was no evidence radiographically or through serum chemistries that he is suffering from an electrolyte or structural disorder to cause current symptomatology. Once his mental status is restored, would alert radiation oncology to continue palliation. At some point, plan to initiate salvage treatment with one of the regimens discussed in the HPI. Agree with medical management otherwise and have no further input. Thank you very much for allowing me to participate in his care. I will continue to follow Mr. Bae periodically during his hospitalization. MTDD
--- NOTE | 2018-12-09 11:45 | Radiation OncologyConsultation ---
Date of Consultation December 09, 2018 Assessment & Plan (1) Malignant neoplasm of upper lobe, right bronchus or lung: Assessment: Mr. Bae is a 78-year-old gentleman with metastatic lung cancer and a history of prostate cancer currently under treatment for palliative external beam radiation therapy to the lumbar spine. The patient has received 8/10 fractions at 300 cGy per fraction for a total dose of 2400 cGy of a planned 3000 cGy. The patient was admitted to the hospital due to altered mental status. Initial imaging studies and laboratory studies have been negative for an etiology for his altered mental status. We have been asked to evaluate him regarding proceeding forward with radiation therapy. Recommendation: 1. Hold radiation therapy until patient's mental status improves. Please call us when patient's mental status improves and we can reevaluate the patient for radiation therapy. 2. Consider MRI of brain when patient is more stable to rule out metastatic disease to the brain. 3. If patient's condition does not improve, consider palliative care consultation. History of Present Illness Attending Physician: Yvon Shah MD History of Present Illness 12/08/2018. Patient presented to the emergency department due to altered mental status. 12/08/2018. CT of head. Impression: No acute intracranial abnormality. Age- related change. 12/08/2018. Chest x-ray. IMPRESSION: 1. Slight decrease in volume of a right upper lobe mass. 2. Moderate stable cardiomegaly. 3. Increased density left base unchanged from the prior exam. 12/08/2018. Patient admitted to hospital for further work-up and evaluation. Patient has been on one-to-one due to agitation and noncompliance. Allergies Allergy/AdvReac Type Severity Reaction Status Date / Time No Known Allergies Allergy Verified 12/08/18 08:30 Home Medications Home Medications Medication Instructions Recorded Confirmed Type aspirin [Aspir-Low] 81 mg PO QAM 10/27/18 12/08/18 History atorvastatin 20 mg PO HS 10/27/18 12/08/18 History cholecalciferol (vitamin D3) 1,000 unit PO QAM 10/27/18 12/08/18 History multivitamin 1 tab PO QAM 10/27/18 12/08/18 History omega 0-qbo-ocx-fish oil [Fish Oil] 1 cap PO BID 10/27/18 12/08/18 History amlodipine 2.5 mg PO QAM 11/16/18 12/08/18 History lisinopril 20 mg PO HS 11/16/18 12/08/18 History apixaban 2.5 mg tablet 5 mg PO BID 11/25/18 12/08/18 History oxycodone 10 mg tablet 10 mg PO Q4H PRN tab 11/25/18 12/08/18 History fentanyl 50 mcg/hr transdermal 1 patch TD Q72H 12/01/18 12/08/18 History patch acetaminophen [Tylenol Extra 500 mg PO Q6H PRN 12/08/18 12/08/18 History Strength] metoprolol tartrate 50 mg PO BID 12/08/18 12/08/18 History prednisone 20 mg PO BID 12/08/18 12/08/18 History Patient History Medical History AAA (abdominal aortic aneurysm) 3.3 cm infrarenal on 01/22/17 Aneurysm of heart FOLLOWS WITH DR. BASURTO>ANEURYSM "SMALL" Atrial fibrillation Cancer PROSTATE-RADIATION SEEDS Gout Hyperlipidemia Hypertension Lung mass NOTED FROM DR. 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/[address] [facility] History of repair of rotator cuff LEFT History of tooth extraction Family History Other No significant family history Social History Preferred Language: Japanese Communication Ability: Effective Visual Impairment: No Limitations Beliefs That Will Affect Care: None Current Living Situation: Spouse Feels Safe at Home: Yes Smoking Status: Unknown if ever smoked Hx Alcohol Use: Yes Alcohol type: beer and wine Review of Systems Review of Systems: Unobtainable due to mental health condition Physical Exam Constitutional: + ill appearing and + combative Results Additional Studies 12/08/18 07:05 ECG [address] head/brain wo con Stat XR chest 1V portable Stat
[2018-12-09] MEDS: OXYCODONE HCL IR 5 MG TAB (IMMEDIATE RELEASE) PO PRN ×2 (14:04→17:54)
[2018-12-09] MEDS: LISINOPRIL 20 MG TAB PO SCH (19:39)
[2018-12-09] MEDS: ATORVASTATIN 20 MG TAB PO SCH (19:39)
[2018-12-09] MEDS: HYDROmorphone INJ 0.5 MG/0.5 ML SYR IV PRN (21:03)
[2018-12-10] MEDS: OXYCODONE HCL IR 5 MG TAB (IMMEDIATE RELEASE) PO PRN ×4 (01:30→17:42)
[2018-12-10] MEDS: METOPROLOL TARTRATE 50 MG TAB PO SCH ×2 (07:38→20:14)
[2018-12-10] MEDS: DOCUSATE SODIUM 100 MG CAP PO SCH ×2 (07:38→20:14)
[2018-12-10] MEDS: ASPIRIN 81 MG ECTAB PO SCH (07:38)
[2018-12-10] MEDS: SENNA 8.6 MG TAB PO SCH (07:38)
[2018-12-10] MEDS: APIXABAN 5 MG TABLET PO SCH ×2 (07:38→20:14)
[2018-12-10] MEDS: AMLODIPINE BESYLATE 5 MG TAB PO SCH (07:38)
[2018-12-10] MEDS: LIDOCAINE 5% 1 PATCH TD SCH (07:39)
[2018-12-10] MEDS: ACETAMINOPHEN 500 MG TAB PO PRN ×3 (07:48→23:16)
--- NOTE | 2018-12-10 09:30 | Progress Note ---
DATE: 12/10/2018 DIAGNOSES: 1. Altered mental status/drug delirium. 2. Metastatic nonsmall cell lung cancer. 3. History of prostate cancer. 4. Chronic atrial fibrillation. 5. Hypertension. SUBJECTIVE: The patient was seen and examined at bedside, looking much brighter. He was conversant, appropriate and answered questions readily this morning. The patient admitted to me he was taking too many oxycodone. During 1 episode, he admits taking 30 mg. Additionally, it was noted 2 patches were applied upon admission. He recovered mentally quickly, again argues for drug-induced event. Nursing reports no overnight difficulties. The patient states he continues to experience significant pain and hopefully we can compromise, we come up with a suitable pain management regimen. OBJECTIVE: GENERAL: A very pleasant 78-year-old gentleman, in no acute distress. VITAL SIGNS: Temperature 36.9, pulse 87, respiratory rate 18, blood pressure 115/81. SKIN: Without rash or lesion. HEENT: Oral mucosa without erythema or ulceration. NECK: Supple. Trachea midline. HEART: Regular rate and rhythm. No clicks, rubs, murmurs or gallops. LUNGS: Clear to auscultation bilaterally. ABDOMEN: Soft, nontender, nondistended. EXTREMITIES: No clubbing, cyanosis or edema. NEUROLOGIC: Grossly intact. IMPRESSION: 1. Drug-induced delirium. 2. Metastatic non-small cell lung cancer. 3. History of prostate cancer. 4. Atrial fibrillation. 5. Hypertension. PLAN: Agree with Radiation-Oncology consult to resume palliative XRT to his lumbar spine. Perhaps maybe start him on a nonsteroidal anti-inflammatory as an adjunct with the opioids. Clearly his altered mental status was opiate driven. The patient is admitted to overdoing it with oxycodone despite instructions to only use 10 mg every 4-6 hours as needed. I and the patient understands what has happened and is bound to be a bit more careful with these medications. That said, once we move towards discharge, I would like to get him to salvage chemotherapy. I have nothing further to add and will officially sign off today. Thank you for assisting us in the care of this very pleasant gentleman.
--- NOTE | 2018-12-10 11:08 | Hospitalist Progress Note ---
Date of Service December 10, 2018 Assessment & Plan (1) Altered mental status: Altered mental status: -CT head negative for stroke -urine analysis negative, blood cultures negative -B12 normal, folic acid levels normal, TSH normal, RPR pending -normal uric acid levels - likely from Fentanyl, discontinued continue to monitor while on Oxycodone - PT/OT ordered Metastatic cancer: history or prostate cancer and Metastatic non-small lung CA recent PET scan prior to this admission 1. There is a 4.1 cm spiculated mass lesion at the right apex consistent with the reported history of lung cancer. 2. There are at least 2 adjacent subcentimeter satellite nodules in the right upper lobe. 3. There are FDG avid right supraclavicular, right hilar, and mediastinal lymph nodes consistent with metastatic disease. 4. There is a solitary hepatic metastasis. 5. 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 6. The large L2 lesion causes pathologic fracture, and there is soft tissue invasion posteriorly which causes mild acquired compromise of the central canal and impinges on the thecal sac. 7. Emphysema. 8. Cardiomegaly. 9. There is aneurysmal dilatation of the ascending thoracic aorta which measures up to 4.9 cm. 10. There is a 3.3 cm infrarenal abdominal aortic aneurysm. - plan to resume Radiation therapy when mental status further improves Chronic atrial fibrillation -continue apixaban 5 mg BID -continue home dose metoprolol and statin ascending thoracic aorta aneurysm -continue medical management with metoprolol at this time Hypertension -blood pressure controlled -continue home dose lisinopril PT/OT evaluations DVT ppx: apixaban Full Code Disposition PT/OT eval anticipate d/c to SNF tomorrow Subjective ff up for altered mental status seen resting in bed, comfortable denies headache, dizziness, chest pain, palpitations answers most questions appropriately no other symptoms Review of Systems Review of Systems: All systems reviewed & are unremarkable except as noted in HPI & below Physical Exam Physical Exam: General- oriented x 2, not in distress, speaks in sentences with no effort or accessory muscle use Head- atraumatic Eyes- PERRL, EOMI, anicteric ENT- oropharynx clear Neck- supple, no JVD, no adenopathy, no thyromegaly; carotids +2/2, no bruits appreciated Lungs- clear to auscultation bilaterally, no rales/wheezes Heart- normal rate, regular rhythm; no murmur, no gallop, no rub appreciated Abdomen- normal bowel sounds, nondistended, soft, nontender, no masses or hepatosplenomegaly Extremities- no pretibial edema, no calf tenderness; peripheral pulses intact Neuro- alert, oriented x 2; CN 2-12 grossly intact; motor 5/5 bilaterally;sensation 100% on all extremities; no other gross focal neurologic deficits Skin- warm & dry Results & Data Vital Signs (Past 12 Hours) Vital Signs Temp Pulse Resp BP Pulse Ox 12/10/18 07:33 36.9 C 87 18 115/81 95 12/10/18 02:46 37 C 85 20 112/79 95 12/09/18 23:13 36.9 C 88 22 108/68 96 (1) Altered mental status Altered mental status type: unspecified Qualified Code(s): R41.82 - Altered mental status, unspecified
[2018-12-10] MEDS: LISINOPRIL 20 MG TAB PO SCH (20:14)
[2018-12-10] MEDS: ATORVASTATIN 20 MG TAB PO SCH (20:14)
[2018-12-11] MEDS: ACETAMINOPHEN 500 MG TAB PO PRN ×2 (07:49→14:45)
[2018-12-11] MEDS: LIDOCAINE 5% 1 PATCH TD SCH (07:49)
[2018-12-11] MEDS: OXYCODONE HCL IR 5 MG TAB (IMMEDIATE RELEASE) PO PRN ×3 (07:49→23:34)
[2018-12-11] MEDS: AMLODIPINE BESYLATE 5 MG TAB PO SCH (07:50)
[2018-12-11] MEDS: APIXABAN 5 MG TABLET PO SCH ×2 (07:50→20:56)
[2018-12-11] MEDS: ASPIRIN 81 MG ECTAB PO SCH (07:50)
[2018-12-11] MEDS: METOPROLOL TARTRATE 50 MG TAB PO SCH ×2 (07:50→20:55)
[2018-12-11] MEDS: SENNA 8.6 MG TAB PO SCH (07:50)
[2018-12-11] MEDS: DOCUSATE SODIUM 100 MG CAP PO SCH ×2 (07:50→20:56)
[2018-12-11] MEDS: LISINOPRIL 20 MG TAB PO SCH (20:55)
[2018-12-11] MEDS: ATORVASTATIN 20 MG TAB PO SCH (20:56)
[2018-12-11] MEDS: HYDROmorphone INJ 0.5 MG/0.5 ML SYR IV PRN (21:25)
[2018-12-12] MEDS: ACETAMINOPHEN 500 MG TAB PO PRN ×2 (01:29→06:55)
[2018-12-12] MEDS: AMLODIPINE BESYLATE 5 MG TAB PO SCH (07:59)
[2018-12-12] MEDS: ASPIRIN 81 MG ECTAB PO SCH (07:59)
[2018-12-12] MEDS: METOPROLOL TARTRATE 50 MG TAB PO SCH (07:59)
[2018-12-12] MEDS: APIXABAN 5 MG TABLET PO SCH (07:59)
[2018-12-12] MEDS: SENNA 8.6 MG TAB PO SCH (07:59)
[2018-12-12] MEDS: LIDOCAINE 5% 1 PATCH TD SCH (07:59)
[2018-12-12] MEDS: DOCUSATE SODIUM 100 MG CAP PO SCH (07:59)
[2018-12-12 11:44] VITALS: PULSE 88; TEMP 97.7; O2SAT 94
[2018-12-12] MEDS: OXYCODONE HCL IR 5 MG TAB (IMMEDIATE RELEASE) PO PRN (11:45)
[2018-12-12] MEDS ORDERED: NICOTINE 21 MG/24 HR TDSY TD SCH (11:45)
[2018-12-12] MEDS ORDERED: NICOTINE 14 MG/24 HR PATCH TD SCH (12:00)
--- NOTE | 2018-12-12 13:10 | Hospitalist Progress Note ---
Date of Service December 12, 2018 Assessment & Plan (1) Altered mental status: Altered mental status: -CT head negative for stroke -urine analysis negative, blood cultures negative -B12 normal, folic acid levels normal, TSH normal, RPR pending -normal uric acid levels - likely from Fentanyl, discontinued has been receiving Oxycodone PRN mental status improved - must observe caution when providing additional narcotic medication to prevent altered mental status - continue PT/OT fall precautions ambulate with assistance Metastatic cancer: history or prostate cancer and Metastatic non-small lung CA recent PET scan prior to this admission 1. There is a 4.1 cm spiculated mass lesion at the right apex consistent with the reported history of lung cancer. 2. There are at least 2 adjacent subcentimeter satellite nodules in the right upper lobe. 3. There are FDG avid right supraclavicular, right hilar, and mediastinal lymph nodes consistent with metastatic disease. 4. There is a solitary hepatic metastasis. 5. 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 6. The large L2 lesion causes pathologic fracture, and there is soft tissue invasion posteriorly which causes mild acquired compromise of the central canal and impinges on the thecal sac. 7. Emphysema. 8. Cardiomegaly. 9. There is aneurysmal dilatation of the ascending thoracic aorta which measures up to 4.9 cm. 10. There is a 3.3 cm infrarenal abdominal aortic aneurysm. - plan to resume Radiation therapy when mental status further improves, follows commands please call Radiation Oncologist Dr. Anson Flores in [facility] next week for an appointment. Tel No in the discharge instruction sheet Chronic atrial fibrillation -continue apixaban 5 mg BID -continue home dose metoprolol and statin ascending thoracic aorta aneurysm -continue medical management with metoprolol at this time Hypertension -blood pressure controlled -continue home dose lisinopril PT/OT evaluations Disposition d/c home ff up with Rad On[facility] next week ff up with PCP at [facility] Subjective ff up for altered mental status seen resting in bed, comfortable states he wants to go home to spend the holiday weekend at home reporting pain is not adequately controlled- but was not in distress has been reporting the past 2 days that oxycodone is working well- declines any additional pain medications denies chest pain, dyspnea, dizziness, palpitations patient agreed with going to SNF after family spoke with him] no other symptoms Review of Systems Review of Systems: All systems reviewed & are unremarkable except as noted in HPI & below Physical Exam Physical Exam: General- oriented x 3, not in distress, speaks in sentences with no effort or accessory muscle use Eyes- anicteric Neck- no JVD Lungs- clear breath sounds bilaterally no crackles, no wheezing Heart- normal rate, regular rhythm; no murmurs Abdomen- normal bowel sounds, nondistended, soft, nontender Extremities- no pretibial edema, no calf tenderness Neuro- alert, oriented x 3; no gross focal neurologic deficits Skin- warm & dry Results & Data Vital Signs (Past 12 Hours) Vital Signs Temp Pulse Resp BP BP Pulse Ox 12/12/18 11:43 36.5 C 88 20 113/76 94 12/12/18 07:57 37.2 C 90 20 107/70 99 12/12/18 03:16 37.0 C 98 H 18 96/67 L 97 (1) Altered mental status Altered mental status type: unspecified Qualified Code(s): R41.82 - Altered mental status, unspecified
--- NOTE | 2018-12-12 13:11 | Discharge Summary ---
Date of Service December 12, 2018 Admission HPI Per Admitting Provider This is a 78 year old male who follows with primary acre doctor Dr. Guzman with malignancy who follows with Dr. Justice for cancer treatment and was actually due for radiatio treatment on 12/08/18 at [facility]. Patient's daughter Karen [phone] brought patient in with concerns that patient has been having progressive changes in mental status. Reports that patient lives with who has disability. Reports that patient has been having periods of confusion such as reporting that he is seeing things that are not there, more forgetful, trying to leave the house to go to work when he does not have work. Daughter reports that patient has been retired from month from work 1 month ago. Patient insists he is still employed. Patient reports that the year is 1998 instead of 2018. He knows the month is November. When asked who is the vice president quality assurance, patient does not recall and then says he has trouble with remembering names. CT head on admission is negative for stroke. Patient does not appear to have gross motor deficits on exam. At baseline, patient's daughter reports that he uses cane or walker and not very mobile at home. Patient denies fever. denies acute pain. patient is awake and cooperative on exam. denies problems with urination or with bowel movements. denies vomiting Admission Exam Per Admitting Provider Constitutional: well developed Eyes: PERRL, conjunctivae normal, anicteric sclerae EOM intact bilaterally ENMT: external ear and nose normal, oropharynx normal Neck: trachea midline, no thyromegaly normal visual inspection Respiratory: normal respiratory effort, lungs clear to auscultation Cardiovascular: Rate/Rhythm: + tachycardic and + irregularly irregular Gastrointestinal (Abdomen): normal bowel sounds, soft, nontender, no hepatosplenomegaly Musculoskeletal: Head/Neck/Chest: normocephalic and head atraumatic Neurologic: PERRL, EOMI, accommodation nl, no face palsy, no dysarthria Psychiatric: Orientation: alert, oriented to place and cooperative Principal Diagnosis ALTERED MENTAL STATUS SECONDARY TO FENTANYL PATCH Discharge Exam General- oriented x 3, not in distress, speaks in sentences with no effort or accessory muscle use Eyes- anicteric Neck- no JVD Lungs- clear breath sounds bilaterally no crackles, no wheezing Heart- normal rate, regular rhythm; no murmurs Abdomen- normal bowel sounds, nondistended, soft, nontender Extremities- no pretibial edema, no calf tenderness Neuro- alert, oriented x 3; no gross focal neurologic deficits Skin- warm & dry Discharge Data Allergies Allergy/AdvReac Type Severity Reaction Status Date / Time No Known Allergies Allergy Verified 12/08/18 08:30 Consultations 12/08/18 08:31 ED Decision to Admit Stat 12/08/18 09:10 Consult Case Management - Discharge Planning Routine Consult Oncology Routine 12/08/18 17:53 Consult Radiation Oncology Routine Ordered Studies 12/08/18 07:05 CT head/brain wo con Stat CT head/brain wo con CT DOSE: 614.27 mGy.cm HISTORY: Mental status change ALTERED LOC TECHNIQUE: Multiaxial CT images of the head were performed without the use of intravenous contrast. A dose lowering technique was utilized adhering to the principles of ALARA. Comparison: None. Findings: The paranasal sinuses and mastoid air cells are clear. The calvarium and skull base are intact. The ventricles and sulci are within normal limits. There is no mass, hematoma, midline shift, or acute infarct. Mild age-related atrophy and chronic small vessel change. Impression: No acute intracranial abnormality. Age-related change. XR chest 1V portable CLINICAL HISTORY: weakness mental status change. Dyspnea. COMPARISON STUDY: 11/07/2018 FINDINGS: Moderate cardiomegaly. Prior median sternotomy. Subtle increase in density left base unchanged in the prior study. Slight inc rease in density right upper lung although this is improved from the prior study read IMPRESSION: 1. Slight decrease in volume of a right upper lobe mass. 2. Moderate stable cardiomegaly. 3. Increased density left base unchanged from the prior exam. Hospital Course (1) Altered mental status: Altered mental status secondary to Fentanyl Patch -CT head negative for stroke -urine analysis negative, blood cultures negative -B12 normal, folic acid levels normal, TSH normal, RPR pending -normal uric acid levels - likely from Fentanyl, discontinued has been receiving Oxycodone PRN mental status improved - must observe caution when providing additional narcotic medication to prevent altered mental status - continue PT/OT fall precautions ambulate with assistance Metastatic cancer: history or prostate cancer and Metastatic non-small lung CA --recent PET scan prior to this admission 1. There is a 4.1 cm spiculated mass lesion at the right apex consistent with the reported history of lung cancer. 2. There are at least 2 adjacent subcentimeter satellite nodules in the right upper lobe. 3. There are FDG avid right supraclavicular, right hilar, and mediastinal lymph nodes consistent with metastatic disease. 4. There is a solitary hepatic metastasis. 5. 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 6. The large L2 lesion causes pathologic fracture, and there is soft tissue invasion posteriorly which causes mild acquired compromise of the central canal and impinges on the thecal sac. 7. Emphysema. 8. Cardiomegaly. 9. There is aneurysmal dilatation of the ascending thoracic aorta which measures up to 4.9 cm. 10. There is a 3.3 cm infrarenal abdominal aortic aneurysm. - plan to resume Radiation therapy when mental status further improves, follows commands please call Radiation Oncologist Dr. Seth Flores in [facility] next week for an appointment. Tel No in the discharge instruction sheet Chronic atrial fibrillation -continue apixaban 5 mg BID -continue home dose metoprolol and statin ascending thoracic aorta aneurysm -continue medical management with metoprolol at this time Hypertension -blood pressure controlled -continue home dose lisinopril PT/OT evaluations Disposition d/c home ff up with Rad On[facility] next week ff up with PCP at [facility] Total Time Total Time Spent Total Time Spent (In Minutes): 55 minutes Discharge Plan Discharge Items Patient Disposition: Transfer [facility]pc Fac Reason For Visit: ALTERED MENTAL STATUS Discharge Diagnosis: ALTERED MENTAL STATUS SECONDARY TO FENTANYL PATCH Discharge Goals: Diagnostic testing and Therapeutic intervention Activity: As commented below Activity Comment: WITH ASSISTANCE, FALL PRECAUTIONS, CONTINUE PT/OT Lifting: Wait until after follow-up appointment Exercise/Sports: Wait until after follow-up appointment Driving/Machine Use Comment: NO DRIVING Non-emergency contact: Primary Care Provider and Oncologist Call non-emergency contact if: you have any medication questions, your symptoms worsen, your pain is not controlled, your pain is worsening, your pain is unusual for you, your pain is concerning for you and you have a fever Follow-up/Referrals: Diamond Guzman [Primary Care Provider] - Diet: Heart Healthy Addtl Provider Instructions: PLEASE CALL DR. SETH FLORES (RADIATION ONCOLOGIST, [facility]) NEXT WEEK FOR RADIATION TREATMENT APPOINTMENT. TEL. NO. [phone] PLEASE REFER TO ACCOMPANYING HOSPITAL DISCHARGE SUMMARY FOR FURTHER DETAILS. Prescriptions: New sennosides [Senokot] 8.6 mg Tablet 8.6 mg PO QAM 14 Days Qty: 14 RF: 1 docusate sodium 100 mg Capsule 100 mg PO BID 14 Days Qty: 28 RF: 1 nicotine 7 mg/24 hr Patch 24 Hour 14 mg transdermal QAM 10 Days Qty: 10 RF: 0 lidocaine 5 % Adhesive Patch,Medicated 1 patch transdermal QAM 14 Days Qty: 14 RF: 1 Eliquis 2.5 mg tablet 5 mg PO BID 30 Days Qty: 120 RF: 1 Continued multivitamin Tablet 1 tab PO QAM RF: 0 atorvastatin 20 mg Tablet 20 mg PO HS RF: 0 aspirin [Aspir-Low] 81 mg Tablet,Delayed Release (Dr/Ec) 81 mg PO QAM RF: 0 cholecalciferol (vitamin D3) 1,000 unit Tablet 1,000 unit PO QAM RF: 0 omega 1-zdu-oxb-fish oil [Fish Oil] 1,000 mg (120 mg-180 mg) Capsule 1 cap PO BID RF: 0 lisinopril 20 mg tablet 20 mg PO HS RF: 0 amlodipine 2.5 mg tablet 2.5 mg PO QAM RF: 0 acetaminophen [Tylenol Extra Strength] 500 mg Tablet 500 mg PO Q6H PRN (Reason: Pain) RF: 0 metoprolol tartrate 50 mg tablet 50 mg PO BID RF: 0 oxycodone 10 mg tablet 10 mg PO Q4H PRN (Reason: pain) Qty: 10 RF: 0 Discontinued fentanyl 50 mcg/hr patch 72 hour 1 patch TD Q72H RF: 0 prednisone 20 mg tablet 20 mg PO BID RF: 0 Stand-Alone Forms: [facility] Discharge Orders: Discharge Order (Routine); Ordered 12/12/18 Ordered By: Mookie Roe Skilled Items Patient informed of condition?: Yes DNR: No Discharge Level of Care: Skilled Communicable Disease: No Discharge Prognosis: Stable Admission Data Admit Date/Time: 12/08/18 09:12 Attending Provider: Mookie Roe Admit Provider: Yvon Shah Primary Care Provider: Diamond Guzman Other Providers: Yvon Shah ; Epi Justice V ; Seth Flores. Service: Telemetry
[2018-12-12 14:09] VITALS: BP 107/70
== END 2018-12-12 15:50 | DRG 917 ==
LOC: ED 06:50 → SUATTDRO 09:12 → 2E 09:12

== ENCOUNTER 2018-12-19 09:54 | Inpatient (IN) ==
[2018-12-19] MEDS ORDERED: ONDANSETRON INJ 2 MG/ML 2 ML VIAL IV PRN (11:18)
[2018-12-19] MEDS ORDERED: OXYCODONE HCL IR 5 MG TAB (IMMEDIATE RELEASE) PO PRN (11:18)
[2018-12-19] MEDS ORDERED: ACETAMINOPHEN 325 MG TAB ONE (11:33)
--- NOTE | 2018-12-19 14:44 | Palliative Care Consultation ---
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 Patient had PET scan done on 11/19 that showed lung lesions as well as a right fourth rib lesion and L2 lesion with pathological fracture, extending in the soft tissue. Patient was just admitted to the hospital and discharged 12/12 after he was here with altered mental status 2/2 narcotic pain medications. Per record, patient was wearing a 50mcg fentanyl patch and taking oxycodone 10mg more than the Q4-6 hours as prescribed. The fentanyl patch was removed and the oxycodone was discontinued. His mental status immediately improved and he was discharged to [facility] for rehab, with only Tylenol PRN for pain. Today, he went to his last radiation treatment and afterwards was having such severe pain that he was on the floor "on all fours." He is now admitted for pain control. Heme/onc is consulted to help assist with planning-- patient uncertain of whether or not he is going to undergo salvage chemotherapy. Palliative care is consulted to assist with pain management. -Patient is awake, alert and oriented x4. He has two daughters at bedside. Seen in room 415. -patient states that his pain is currently a 3/10 in his lower back, directly over the spine. The pain intensifies to 10/10 with certain movements such as twisting, or when he is trying to sit in a chair. He has no problem lying flat, but does prefer to lay on his left side. Pain sometimes radiates down his right leg. -Agree with starting oxycodone IR 10mg PO Q3h PRN pain. See how this affects him and how often he is needing it. -Consider use of decadron 4mg PO daily for bone pain as well. -Patient states he is still uncertain of whether or not he will start chemother apy, but is willing to discuss options. -We will follow as needed. (2) Malignant neoplasm of upper lobe, right bronchus or lung: (3) Bony metastasis: Supervising Physician Co-Signing Physician Notes Chart reviewed, patient seen and examined. Collaborated with OVIDIO Cho PE: Patient awake and alert, no acute distress lying in bed. Patient reports pain has improved with XRT-has pain only when upright and ambulatory. HEENT: EOMI, hearing within normal limits Respiratory: Unlabored, clear breath sounds CV: Regular rate, no edema Abdomen: Not distended Extremities: Full range of motion Neuro: Alert and oriented x4 Agree with above note, assessment and plan this is OVIDIO Padilla-we will continue to follow and assist with pain management as well as medical decision making. History of Present Illness Attending Physician: Jim Corey MD History of Present Illness This 78 year old male patient with Stage IV metastatic non-small cell lung cancer, presented to the hospital today with intractable back pain related to his L2 spinal lesion. Patient had PET scan done on 11/19 that showed lung lesions as well as a right fourth rib lesion and L2 lesion with pathological fracture, extending in the soft tissue. Patient was just admitted to the hospital and discharged 12/12 after he was here with altered mental status 2/2 narcotic pain medications. Per record, patient was wearing a 50mcg fentanyl patch and taking oxycodone 10mg more than the Q4-6 hours as prescribed. The fentanyl patch was removed and the oxycodone was discontinued. His mental status immediately improved and he was discharged to [facility] for rehab, with only Tylenol PRN for pain. Today, he went to his last radiation treatment and afterwards was having such severe pain that he was on the floor "on all fours." He is now admitted for pain control. Heme/onc is consulted to help assist with planning-- patient uncertain of whether or not he is going to undergo salvage chemotherapy. Palliative care is consulted to assist with pain management. Thank you kindly for this consult. I will follow as needed. Allergies Allergy/AdvReac Type Severity Reaction Status Date / Time No Known Allergies Allergy Verified 12/08/18 08:30 Home Medications Home Medications Medication Instructions Recorded Confirmed Type aspirin [Aspir-Low] 81 mg PO QAM 10/27/18 12/08/18 History atorvastatin 20 mg PO HS 10/27/18 12/08/18 History cholecalciferol (vitamin D3) 1,000 unit PO QAM 10/27/18 12/08/18 History multivitamin 1 tab PO QAM 10/27/18 12/08/18 History omega 4-jmr-mxp-fish oil [Fish Oil] 1 cap PO BID 10/27/18 12/08/18 History amlodipine 2.5 mg PO QAM 11/16/18 12/08/18 History lisinopril 20 mg PO HS 11/16/18 12/08/18 History acetaminophen [Tylenol Extra 500 mg PO Q6H PRN 12/08/18 12/08/18 History Strength] metoprolol tartrate 50 mg PO BID 12/08/18 12/08/18 History Eliquis 5 mg PO BID 30 Days #120 tab 12/12/18 Rx docusate sodium 100 mg PO BID 14 Days #28 cap 12/12/18 Rx lidocaine 1 patch TRANSDERMAL QAM 14 Days 12/12/18 Rx #14 ea nicotine 14 mg TRANSDERMAL QAM 10 Days #10 12/12/18 Rx ea oxycodone 10 mg PO Q4H PRN #10 tab 12/12/18 Rx sennosides [Senokot] 8.6 mg PO QAM 14 Days #14 tab 12/12/18 Rx Oxygen Home 12/19/18 12/19/18 History Patient History Social History Preferred Language: Yoruba Communication Ability: Effective Visual Impairment: No Limitations 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 Required: No Beliefs That Will Affect Care: None Current Living Situation: Spouse Other Information That Helps Us Care for You: No Feels Safe at Home: Yes Safety Concerns: Feels Safe At This Time Smoking Status: Former smoker Tobacco Type: cigarettes Cigarettes Per Day: 40 Do You Dip or Chew Tobacco: No Smoking End Date: 1999 Second Hand Exposure: No Tobacco Cessation Education Requested by Patient: No Hx Alcohol Use: Yes Alcohol type: beer, wine and hard liquor Hx Substance Use: No Review of Systems Constitutional: + weakness (BL upper legs) Ear, Nose, Mouth, Throat: no dysphagia Respiratory: no cough and no dyspnea Cardiovascular: no chest pain and no edema Gastrointestinal: no abdominal pain and no nausea Musculoskeletal: as per Subjective / HPI Neurologic: + memory loss (per the family) Psychiatric: no anxiety Physical Exam Constitutional: well developed and well nourished; no acute distress ENMT: Ears: no hearing impairment Neck: normal visual inspection Respiratory: normal respiratory effort, lungs clear to auscultation Auscultation: + diminished lung sounds Cardiovascular: RRR, no murmur, no edema Gastrointestinal (Abdomen): normal bowel sounds, soft, nontender, no hepatosplenomegaly Skin: no rashes, warm and dry Neurologic: moves all extremities and awake Psychiatric: A+Ox3, euthymic affect Results & Data Vital Signs (Past 12 Hours) Vital Signs Temp Pulse Resp BP Pulse Ox 12/19/18 10:22 36.7 C 79 16 90/57 L 97 Time Spent Midlevel 70 minutes with >50% of time spent at bedside with patient and family discussing condition and pain management.
[2018-12-19] MEDS ORDERED: IBUPROFEN 200 MG TAB PO PRN (15:36)
--- NOTE | 2018-12-19 15:50 | History & Physical Report ---
Date of Service December 19, 2018 Assessment & Plan (1) Cancer related pain: Appears that we are having trouble finding happy medium pain control. With prior fentanyl patches and access to oxy, the patient was doubling-up his patches and taking 2-3x the dosages of oxy prescribed which led to confusion. Then, at [facility], it appears he was given no narcotics and had so much pain it led to this admission. 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 Possibly will trial salvage chemotherapy with Dr. Justice, though unclear when it will begin as he is in/out of the hospital. - Oncology consulted (3) Hypertension: BP presently at goal at 115/70. - Continue home blood pressure medications. (4) Atrial fibrillation: Chronic. 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 He was recently admitted for delirium related to his pain medications. He was here for 4 days with return to normal mentation after stopping his opioid pain meds. However, he was then discharged solely on acetaminophen, oxycodone, & lidocaine patches. At [facility], it appears he was not getting any oxycodone, and he was unable to complete rehab due to the pain. He was seen by Dr. Justice in oncology today and admitted to the hospital due to pain. At present, he reports lower back pain and right leg pain. Otherwise denies any ROS. Allergies Allergy/AdvReac Type Severity Reaction Status Date / Time No Known Allergies Allergy Verified 12/08/18 08:30 Home Medications Home Medications Medication Instructions Recorded Confirmed Type aspirin [Aspir-Low] 81 mg PO QAM 10/27/18 12/08/18 History atorvastatin 20 mg PO HS 10/27/18 12/08/18 History cholecalciferol (vitamin D3) 1,000 unit PO QAM 10/27/18 12/08/18 History multivitamin 1 tab PO QAM 10/27/18 12/08/18 History omega 7-yog-xye-fish oil [Fish Oil] 1 cap PO BID 10/27/18 12/08/18 History amlodipine 2.5 mg PO QAM 11/16/18 12/08/18 History lisinopril 20 mg PO HS 11/16/18 12/08/18 History acetaminophen [Tylenol Extra 500 mg PO Q6H PRN 12/08/18 12/08/18 History Strength] metoprolol tartrate 50 mg PO BID 12/08/18 12/08/18 History Eliquis 5 mg PO BID 30 Days #120 tab 12/12/18 Rx docusate sodium 100 mg PO BID 14 Days #28 cap 12/12/18 Rx lidocaine 1 patch TRANSDERMAL QAM 14 Days 12/12/18 Rx #14 ea nicotine 14 mg TRANSDERMAL QAM 10 Days #10 12/12/18 Rx ea oxycodone 10 mg PO Q4H PRN #10 tab 12/12/18 Rx sennosides [Senokot] 8.6 mg PO QAM 14 Days #14 tab 12/12/18 Rx Oxygen Home 12/19/18 12/19/18 History Past Med/Surg History Medical History AAA (abdominal aortic aneurysm) 3.3 cm infrarenal on 01/22/17 Aneurysm of heart FOLLOWS WITH DR. BASURTO>ANEURYSM "SMALL" Atrial fibrillation Cancer PROSTATE-RADIATION SEEDS Gout Hyperlipidemia Hypertension Lung mass NOTED FROM DR. 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/2 VESSELS REPAIR IN [facility] History of repair of rotator cuff LEFT History of tooth extraction Family History Other No significant family history Social History Preferred Language: Danish Communication Ability: Effective Visual Impairment: No Limitations Director Speech And Hearing Required: No Beliefs That Will Affect Care: None Current Living Situation: Spouse Other Information That Helps Us Care for You: No Feels Safe at Home: Yes Safety Concerns: Feels Safe At This Time Smoking Status: Former smoker Tobacco Type: cigarettes Cigarettes Per Day: 40 Do You Dip or Chew Tobacco: No Smoking End Date: 1999 Second Hand Exposure: No Tobacco Cessation Education Requested by Patient: No Hx Alcohol Use: Yes Alcohol type: beer, wine and hard liquor Hx Substance Use: No Review of Systems Constitutional: no fever, no chills and no sweats Eyes: no diplopia Ear, Nose, Mouth, Throat: no ear trauma, no nasal discharge and no dental pain Respiratory: no cough, no chest congestion and no dyspnea Cardiovascular: no chest pain, no dyspnea on exertion, no palpitations and no syncope Gastrointestinal: no abdominal pain, no belching, no constipation, no diarrhea/loose stools, no blood in stools and no melena Musculoskeletal: + back pain and + joint pain; no neck pain and no muscle weakness Integumentary: no rash, no skin ulcer and no erythema Neurologic: no generalized weakness, no loss of sensation, no numbness and no paresthesia Psychiatric: no depression and no anxiety Endocrine: no fatigue, no polydipsia and no polyphagia Physical Exam Constitutional: WD/WN, vitals as above Eyes: EOM intact bilaterally; no conjunctival abnormality ENMT: external ear and nose normal, oropharynx normal Neck: trachea midline, no thyromegaly normal visual inspection Respiratory: normal respiratory effort, lungs clear to auscultation no respiratory distress Cardiovascular: RRR, no murmur, no edema Gastrointestinal (Abdomen): Inspection/Auscultation: abdomen normal to inspection; abdomen not distended Musculoskeletal: no cyanosis or clubbing, extremities motor strength 5/5 Back tenderness Skin: no rashes, warm and dry Neurologic: moves all extremities and awake Psychiatric: Orientation: alert, oriented to person and cooperative Results & Data Vital Signs (Past 12 Hours) Vital Signs Temp Pulse Resp BP Pulse Ox 12/19/18 10:22 36.7 C 79 16 90/57 L 97
[2018-12-19] MEDS: ACETAMINOPHEN 325 MG TAB PO PRN ×2 (16:30→20:34)
[2018-12-19] MEDS: dexAMETHasone 4 MG TAB PO SCH (17:35)
[2018-12-19] MEDS: APIXABAN 5 MG TABLET PO SCH (20:35)
[2018-12-19] MEDS: METOPROLOL TARTRATE 25 MG TAB PO SCH (20:35)
[2018-12-19] MEDS: LISINOPRIL 20 MG TAB PO SCH (20:35)
[2018-12-20 06:09] LABS: Hematocrit (blood only) 40.9 % (42-52); Hemoglobin 14.7 g/dL (14.0-18.0); Mean Corpuscular Hgb Conc 35.9 g/dL (32-36); Mean Corpuscular Volume 85.4 fL (80-100); Mean Platelet Volume 9.4 fL (7.4-10.4); Platelet Count 280 K/uL (130-400); RDW Coefficient of Variation 13.8 % (11.5-14.5); RDW Standard Deviation 43.2 fL (36.4-46.3); Red Blood Count 4.79 M/uL (4.7-6.1); White Blood Count 6.63 K/uL (4.8-10.8)
[2018-12-20 06:40] LABS: BUN Creatinine Ratio 19.6 (10-20); Calcium 9.2 mg/dl (8.5-10.1); Creatinine Clr Calc Pharmacy 83.6 ml/min; Est GFR (African American) 103.1; Magnesium 2.1 mg/dl (1.8-2.4); Potassium 4.2 mmol/L (3.5-5.1)
[2018-12-20] MEDS: APIXABAN 5 MG TABLET PO SCH ×2 (07:51→20:34)
[2018-12-20] MEDS: ASPIRIN 81 MG ECTAB PO SCH (07:52)
[2018-12-20] MEDS: CHOLECALCIFEROL 1,000 UNITS TAB PO SCH (07:52)
[2018-12-20] MEDS: AMLODIPINE BESYLATE 5 MG TAB PO SCH (07:52)
[2018-12-20] MEDS: dexAMETHasone 4 MG TAB PO SCH (07:52)
[2018-12-20] MEDS: METOPROLOL TARTRATE 25 MG TAB PO SCH ×2 (07:52→20:34)
[2018-12-20] MEDS: ACETAMINOPHEN 325 MG TAB PO PRN ×3 (08:01→17:22)
--- NOTE | 2018-12-20 13:01 | Hospitalist Progress Note ---
Date of Service December 20, 2018 Assessment & Plan (1) Cancer related pain: Appears that we are having trouble finding happy medium pain control. With prior fentanyl patches and access to oxy, the patient was doubling-up his patches and taking 2-3x the dosages of oxy prescribed which led to confusion. Then, at [facility], it appears he was given no narcotics and had so much pain it led to this admission. - Appreciate palliative care recommendations - Will trial Tylenol and oxycodone without long-acting pain medications - Added dexamethasone for bone pain - On 12/20, pain has substantially improved. Will discharge with short-course of oxy (though not needing it) and possibly steroids. 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 Possibly will trial salvage chemotherapy with Dr. Justice, though unclear when it will begin as he is in/out of the hospital. - Oncology consulted (3) Hypertension: BP presently at goal at 115/70. - Continue home blood pressure medications. (4) Atrial fibrillation: Chronic. - Continue beta-sandra for rate control - Continue apixaban for anticoagulation (5) DVT prophylaxis: On apixaban for afib Subjective Feels his pain is completely resolved. Review of Systems Review of Systems: All systems reviewed & are unremarkable except as noted in HPI & below Physical Exam Constitutional: WD/WN, vitals as above Eyes: EOM intact bilaterally; no conjunctival abnormality ENMT: external ear and nose normal, oropharynx normal Neck: trachea midline, no thyromegaly normal visual inspection Respiratory: normal respiratory effort, lungs clear to auscultation no respiratory distress Cardiovascular: RRR, no murmur, no edema Gastrointestinal (Abdomen): Inspection/Auscultation: abdomen normal to inspection; abdomen not distended Musculoskeletal: no cyanosis or clubbing, extremities motor strength 5/5 Skin: no rashes, warm and dry Neurologic: moves all extremities and awake Psychiatric: Orientation: alert, oriented to person and cooperative Results & Data Vital Signs (Past 12 Hours) Vital Signs Temp Pulse Pulse Resp BP Pulse Ox 12/20/18 11:58 36.8 C 90 18 134/86 98 12/20/18 07:51 36.8 C 94 H 18 112/80 99 12/20/18 04:22 36.6 C 80 18 114/69 98
[2018-12-20] MEDS: LISINOPRIL 20 MG TAB PO SCH (20:34)
[2018-12-21] MEDS: ACETAMINOPHEN 325 MG TAB PO PRN ×2 (02:59→07:59)
[2018-12-21 07:28] VITALS: BP 119/84; TEMP 98.1; O2SAT 98
[2018-12-21] MEDS: ASPIRIN 81 MG ECTAB PO SCH (08:00)
[2018-12-21] MEDS: AMLODIPINE BESYLATE 5 MG TAB PO SCH (08:00)
[2018-12-21] MEDS: APIXABAN 5 MG TABLET PO SCH (08:00)
[2018-12-21] MEDS: dexAMETHasone 4 MG TAB PO SCH (08:00)
[2018-12-21] MEDS: CHOLECALCIFEROL 1,000 UNITS TAB PO SCH (08:01)
[2018-12-21] MEDS: METOPROLOL TARTRATE 25 MG TAB PO SCH (08:01)
[2018-12-21] MEDS ORDERED: BACLOFEN 10 MG TAB PO STA (08:08)
[2018-12-21 11:52] VITALS: PULSE 96
--- NOTE | 2018-12-21 17:06 | Discharge Summary ---
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 He was recently admitted for delirium related to his pain medications. He was here for 4 days with return to normal mentation after stopping his opioid pain meds. However, he was then discharged solely on acetaminophen, oxycodone, & lidocaine patches. At [facility], it appears he was not getting any oxycodone, and he was unable to complete rehab due to the pain. He was seen by Dr. Justice in oncology today and admitted to the hospital due to pain. At present, he reports lower back pain and right leg pain. Otherwise denies any ROS. Principal Diagnosis Cancer-related pain Discharge Exam Constitutional WD/WN, vitals as above Eyes EOM intact bilaterally; no conjunctival abnormality ENMT external ear and nose normal, oropharynx normal Neck trachea midline, no thyromegaly normal visual inspection Respiratory normal respiratory effort, lungs clear to auscultation no respiratory distress Cardiovascular RRR, no murmur, no edema Gastrointestinal (Abdomen) Inspection/Auscultation: abdomen normal to inspection; abdomen not distended Musculoskeletal no cyanosis or clubbing, extremities motor strength 5/5 Skin no rashes, warm and dry Neurologic moves all extremities and awake Psychiatric Orientation: alert, oriented to person and cooperative Discharge Data Allergies Allergy/AdvReac Type Severity Reaction Status Date / Time No Known Allergies Allergy Verified 12/08/18 08:30 Consultations 12/19/18 11:18 Consult Hematology Routine Consult Palliative Care Routine Hospital Course (1) Cancer related pain: Appears that we are having trouble finding happy medium pain control. With prior fentanyl patches and access to oxy, the patient was doubling-up his patches and taking 2-3x the dosages of oxy prescribed which led to confusion. Then, at [facility], it appears he was given no narcotics and had so much pain it led to this admission. - Appreciate palliative care recommendations - Will trial Tylenol and oxycodone without long-acting pain medications - Added dexamethasone for bone pain - On 12/20, pain has substantially improved. Discharged with oxy and steroids. - On 12/21, the patient got into a big argument with his daughter. Per family, he has been getting upset with his at home. Never physically violent, but yelling. This is new and getting worse over the last few months. This could be related to dementia (has a family history) vs. metastatic cancer to the brain. The patient would not wait for further testing. I feel he is capable of making this decision and cannot hold him against his will. I discussed it with Dr. Justice and he will consider outpatient MRI brain. Discussed extensively with his family who feel he is safe to be home (both him and his ), but will try to work with outpatient doctors to prevent further deterioration. 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 Possibly will trial salvage chemotherapy with Dr. Justice, though unclear when it will begin as he is in/out of the hospital. - Oncology consulted (3) Hypertension: BP presently at goal at 115/70. - Continue home blood pressure medications. (4) Atrial fibrillation: Chronic. - Continue beta-sandra for rate control - Continue apixaban for anticoagulation (5) DVT prophylaxis: On apixaban for afib Total Time Total Time Spent Total Time Spent (In Minutes): 35 Total Time Includes: Examination of the Patient and Communication With Other Providers Discharge Plan Discharge Items Patient Disposition: Home - Self-Care Reason For Visit: STAGE 4 LUNG CANCER Discharge Diagnosis: Stage 4 lung cancer Discharge Goals: Decrease discomfort Activity: Resume your previous activity Non-emergency contact: Primary Care Provider and Oncologist Call non-emergency contact if: your symptoms worsen and your pain is not controlled Follow-up/Referrals: Epi Justice DO [Physician] - Diamond Guzman [Primary Care Provider] - Diet: Regular Addtl Provider Instructions: Please take the steroid (dexamethasone) 1 time per day every day for cancer pain. It will not help to double it up, so do not take more than 1 dose per day. Please take the oxycodone very sparingly. It can cause tiredness, so do not operate a car or other machinery with it. Do not take it with alcohol. Prescriptions: New dexamethasone 4 mg Tablet 4 mg PO DAILY Qty: 21 RF: 0 Continued multivitamin Tablet 1 tab PO QAM RF: 0 atorvastatin 20 mg Tablet 20 mg PO HS RF: 0 aspirin [Aspir-Low] 81 mg Tablet,Delayed Release (Dr/Ec) 81 mg PO QAM RF: 0 cholecalciferol (vitamin D3) 1,000 unit Tablet 1,000 unit PO QAM RF: 0 omega 9-flq-bmu-fish oil [Fish Oil] 1,000 mg (120 mg-180 mg) Capsule 1 cap PO BID RF: 0 lisinopril 20 mg tablet 20 mg PO HS RF: 0 amlodipine 2.5 mg tablet 2.5 mg PO QAM RF: 0 acetaminophen [Tylenol Extra Strength] 500 mg Tablet 500 mg PO Q6H PRN (Reason: Pain) RF: 0 metoprolol tartrate 50 mg tablet 50 mg PO BID RF: 0 sennosides [Senokot] 8.6 mg Tablet 8.6 mg PO QAM 14 Days Qty: 14 RF: 1 docusate sodium 100 mg Capsule 100 mg PO BID 14 Days Qty: 28 RF: 1 nicotine 7 mg/24 hr Patch 24 Hour 14 mg transdermal QAM 10 Days Qty: 10 RF: 0 lidocaine 5 % Adhesive Patch,Medicated 1 patch transdermal QAM 14 Days Qty: 14 RF: 1 Eliquis 2.5 mg tablet 5 mg PO BID 30 Days Qty: 120 RF: 1 Oxygen Home Liters Per Minute RF: 0 Changed oxycodone 10 mg tablet 5 mg PO Q4H PRN (Reason: pain) Qty: 10 RF: 0 Stand-Alone Forms: [facility] Discharge Orders: Discharge Order (Routine); Ordered 12/21/18 Ordered By: Jim Corey Admission Data Admit Date/Time: 12/19/18 09:54 Attending Provider: Jim Corey Admit Provider: Jim Corey Primary Care Provider: Diamond Guzman Other Providers: Epi Justice Susan H Service: Medical Other Interventions: Discharge Summary Assessment (RN) Last Done: 12/21/18 11:51 DC Date/Time DO NOT enter until pt leaves facility: 12/21/18 12:13
== END 2018-12-21 12:13 | disposition home or self-care (01) | DRG 948 ==
LOC: 4E 09:54

== ENCOUNTER 2019-03-05 06:28 | Inpatient (IN) ==
--- NOTE | 2019-03-05 06:54 | Emergency Department Note ---
Entered by Melissa Ng acting as a scribe for Bert Cruz DO History of Present Illness General Chief complaint: Respiratory Problems Stated complaint: BREATHING DIFFICULTY Time Seen by Provider: 03/05/19 06:32 Source: patient History of Present Illness Provider complaint: chest pain Onset (ago): hour(s) (this morning) Location: chest Radiation: non-radiation Relieved By: + other (rubbing it out) Associated symptoms: + cough The patient is a 79 year old male who presents to the Emergency Room with complaints of chest pain. He notes that he woke up this morning with pain in his chest that he was able to rub out. He notes that he is worried about an aneurysm. The patient states that he has a cough that started this morning and has been coughing up phlegm. He reports that he feels fine currently. The patient reports that he has a history of prostate cancer and lung cancer. He states that he recently has had chemotherapy treatment. Home Medications Home Medications Medication Instructions Recorded Confirmed Type aspirin [Aspir-Low] 81 mg PO QAM 10/27/18 03/05/19 History atorvastatin 20 mg PO HS 10/27/18 03/05/19 History cholecalciferol (vitamin D3) 1,000 unit PO QAM 10/27/18 03/05/19 History omega 9-orr-cpr-fish oil [Fish Oil] 1 cap PO QAM 10/27/18 03/05/19 History amlodipine 2.5 mg PO QAM 11/16/18 03/05/19 History lisinopril 20 mg PO HS 11/16/18 03/05/19 History acetaminophen [Tylenol Extra 500 mg PO Q6H PRN 12/08/18 03/05/19 History Strength] metoprolol tartrate 50 mg PO BID 12/08/18 03/05/19 History naloxone 4 mg/actuation nasal spray 1 spray INTNAS Q3M PRN #2 ea 02/26/19 03/05/19 Rx apixaban [Eliquis] 5 mg PO BID 03/05/19 03/05/19 History dexamethasone 4 mg PO QAM 03/05/19 03/05/19 History indomethacin 25 mg PO DAILY PRN 03/05/19 03/05/19 History wrslsvrs-rrm-tqbpi-vit K-lycop 1 tab PO QAM 03/05/19 03/05/19 History [Men's Multivitamin] oxycodone 15 mg PO Q6H PRN 03/05/19 03/05/19 History oxycodone [OxyContin] 10 mg PO BID 03/05/19 03/05/19 History Allergies Allergy/AdvReac Type Severity Reaction Status Date / Time fentanyl AdvReac Severe delirium Verified 03/05/19 07:07 Past Med/Surg History Medical History RAFAELA (obstructive sleep apnea) Elevated troponin (Acute) Pneumonia (Acute) Lung cancer (Chronic) Hyperlipidemia (Chronic) Hypertension (Chronic) Aneurysm of heart (Resolved) FOLLOWS WITH DR. BASURTO>ANEURYSM "SMALL" Cancer (Chronic) PROSTATE-RADIATION SEEDS Osteoarthritis (Chronic) Gout (Chronic) Lung mass (Chronic) NOTED FROM DR. NAVARRO'S RECORDS AAA (abdominal aortic aneurysm) (Chronic) 3.3 cm infrarenal on 01/22/17 Atrial fibrillation (Chronic) Surgical History History of cardiac cath (Resolved) OVER 10 YEARS AGO History of coronary artery bypass graft (Resolved) OVER 10 YEARS AGO/2 VESSELS REPAIR IN [facility] H/O eye surgery (Resolved) RT (CANCER REMOVED) History of tooth extraction (Resolved) History of appendectomy (Resolved) History of colonoscopy (Resolved) H/O prostate biopsy (Resolved) History of repair of rotator cuff (Resolved) LEFT History of cataract surgery (Resolved) RT/LEFT Family History Other No significant family history Social History Preferred Language: Palauan Communication Ability: Effective Visual Impairment: No 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 and A total of 10 systems reviewed and were otherwise negative Physical Exam Vital Signs Vital Signs - 24 hr 03/05/19 06:28 03/05/19 06:30 03/05/19 06:44 Temperature 37.0 C Temperature Source Oral Sepsis Recent Fever Within 48 Hours No Sepsis New/Unexplained Change in Mental Status No Sepsis Action Taken by Nursing No Action Required Oxygen Flow Rate - Titration 2 Pulse Oximetry Post Tiitration 94 Pulse Rate 105 H Pulse Rate [Left] Pulse Rhythm [Left] Pulse Strength [Left] Respiratory Rate 26 H Respiratory Effort / Characteristics Respiratory Depth Blood Pressure 107/84 Blood Pressure [Left Arm] Blood Pressure Mean 91 Blood Pressure Mean [Left Arm] Blood Pressure Position [Left Arm] Pulse Oximetry 88 L Oxygen Delivery Method Room Air Nasal Cannula Nasal Cannula Oxygen Flow Rate 0 2 03/05/19 08:00 Temperature Temperature Source Sepsis Recent Fever Within 48 Hours Sepsis New/Unexplained Change in Mental Status Sepsis Action Taken by Nursing Oxygen Flow Rate - Titration Pulse Oximetry Post Tiitration Pulse Rate Pulse Rate [Left] 95 H Pulse Rhythm [Left] Regular Pulse Strength [Left] Normal Respiratory Rate 18 Respiratory Effort / Characteristics Non-Labored Spontaneous Respiratory Depth Normal Blood Pressure Blood Pressure [Left Arm] 104/67 Blood Pressure Mean Blood Pressure Mean [Left Arm] 79 Blood Pressure Position [Left Arm] Lying Pulse Oximetry 93 Oxygen Delivery Method Nasal Cannula Oxygen Flow Rate 2 GENERAL: This is a well-appearing 79 year old male who is in no acute distress and nontoxic in appearance. SKIN: Warm dry and pink. No petechiae or purpura. Skin turgor is good. HEAD: Normocephalic and atraumatic. Fontanelles are normal. OROPHARYNX: Is clear and moist TYMPANIC MEMBRANES: clear and normal. NECK: Supple without lymphadenopathy or meningismus. LUNGS: Rhonchi in right lung. HEART: Regular rate and rhythm. ABDOMEN: Soft and nontender. There are no palpable masses. Bowel sounds are normal. EXTREMITIES: Warm and well perfused. NEUROLOGICALLY: Awake, alert and and appropriate for age. No gross focal deficits. MUSCULOSKELETAL: Good muscle tone. No evidence of trauma. Strength is sym metric. Course 0637: The patient was evaluated in room A2, and a complete history and physical examination were performed. 0830: I discussed the patient's case with Bambi Ernst PA-C [place], [facility] patient for further evaluation. 0844: I reevaluated the patient and updated him on his results. Consultations Consultation #1: Bambi Krause [facility] Hospitalist Time: 08:30 Administered Medications Azithromycin 500 mg/ Dextrose 255 mls @ 127.5 mls/hr IV NOW STA Stop: 03/05/19 10:13 Last Admin: 03/05/19 09:31 Dose: 127.5 mls/hr Documented by: [id number] Discontinued Medications Ceftriaxone Sodium 1,000 mg/ (Dextrose) 60 mls @ 100 mls/hr IV NOW STA; Protocol Stop: 03/05/19 08:49 Last Admin: 03/05/19 08:56 Dose: 100 mls/hr Documented by: [id number] Medical Decision Making Differential Diagnosis Differential diagnosis: Etiologies such as cardiac ischemia, aortic dissection, pulmonary embolism, pneumonia, pneumothorax, musculoskeletal, infections, pericarditis, myocarditis, esophageal rupture, gastrointestinal, as well as others were entertained. Medical Records Attestation: I reviewed the patient's medical records. Home Medications Current Medication List: was personally reviewed by me Laboratory Data Attestation: I reviewed the patient's lab results. Result diagrams: 03/05/19 06:51 03/05/19 06:51 Lab Results 03/05/19 03/05/19 Range/Units 06:51 06:51 WBC 7.24 (4.8-10.8) K/uL RBC 3.14 L (4.7-6.1) M/uL Hgb 9.9 L (14.0-18.0) g/dL Hct 29.5 L (42-52) % MCV 93.9 (80-100) fL MCH 31.5 (25-34) pg MCHC 33.6 (32-36) g/dL RDW Std Deviation 63.7 H (36.4-46.3) fL RDW Coeff of [place] 19.8 H (11.5-14.5) % Plt Count 183 (130-400) K/uL MPV 9.1 (7.4-10.4) fL Immature Gran % (Auto) 1.1 % Neut % (Auto) 94.8 % Lymph % (Auto) 1.9 % [place] % (Auto) 2.1 % Eos % (Auto) 0.0 % Baso % (Auto) 0.1 % Immature Gran # (Auto) 0.08 H (0.00-0.02) K/uL Neut # (Auto) 6.86 H (1.4-6.5) K/uL Lymph # (Auto) 0.14 L (1.2-3.4) K/uL [place] # (Auto) 0.15 (0.11-0.59) K/uL Eos # (Auto) 0.00 (0-0.5) K/uL Baso # (Auto) 0.01 (0-0.2) K/uL Absolute Nucleated RBC 0.12 H (0-0) K/uL Nucleated RBC % (auto) 1.7 % Sodium 141 (136-145) mmol/L Potassium 3.6 (3.5-5.1) mmol/L Chloride 107 (98-107) mmol/L Carbon Dioxide 29 (21-32) mmol/L Anion Gap 5.0 (3-11) BUN 22 H (7-18) mg/dl Creatinine 0.51 L (0.6-1.4) mg/dl Est Cr Clr Drug Dosing 130.7 ml/min Est GFR ( Amer) 119.3 Est GFR (Non-Af Amer) 103.0 BUN/Creatinine Ratio 44.5 H (10-20) Glucose 105 H (70-99) mg/dl Calcium 8.2 L (8.5-10.1) mg/dl Total Bilirubin 1.1 H D (0.2-1) mg/dl AST 27 (15-37) U/L ALT 43 (12-78) U/L Alkaline Phosphatase 89 (45-117) U/L Troponin I 1.140 H* (0-0.045) ng/ml Total Protein 6.0 L (6.4-8.2) gm/dl Albumin 2.8 L (3.4-5.0) gm/dl Globulin 3.2 (2.5-4.0) gm/dl Albumin/Globulin Ratio 0.9 (0.9-2) Imaging Data Radiologist's Impression: Radiology results as stated below per my review and the radiologist's interpretation: XR chest 1V portable CLINICAL HISTORY: Chest Pain dyspnea COMPARISON STUDY: 12/08/2018 FINDINGS: Moderate stable cardiomegaly. Prior median sternotomy. Considerable increase in size of right upper lobe mass possibly with a superimposed infiltrate. Lungs otherwise are clear. Diaphragms are smooth. IMPRESSION: 1. Progressive increase in size of a right apical mass, now possibly combined with superimposed infiltrate. 2. Moderate stable cardiomegaly. The above report was generated using voice recognition software. It may contain grammatical, syntax or spelling errors. Electronically signed by: Anish Walker M.D. 03/05/2019 7:00 AM ECG Data Attestation: I personally reviewed and interpreted this ECG as follows: Indication: chest pain Rate (beats per minute): 102 Rhythm: atrial fibrillation Findings: no PAC, no PVC, no ST elevation and no ectopy Comparison ECG Date: from (12/08/18) Change: the following changes noted (A fib is chronic) Blood Pressure Blood Pressure Findings: Normal blood pressure Blood Pressure Disposition: did not require urgent referral MDM Narrative This is a 79-year-old male who presents to the ED planing of right-sided chest pain. He states that he felt at this morning. He also had a little trouble breathing and has had a rattle in his chest and a slight cough that is nonproductive. The patient states that he uses home oxygen 2.5 L. He is on 2.5 L here. Patient states that he was able to rub out the pain in his chest and it feels better now. The patient denies any other symptoms. He states that he was primarily worried about his aortic aneurysm. The patient does have a history of A. fib. He is on Eliquis. His vital signs here reveal tachycardia and tachypnea. He does not appear to be in any distress on my exam. His heart rate is slightly irregular. His lungs reveal some crackles in the right mid and lower lung region. The patient otherwise states that he feels fairly normal. The patient's chest x-ray reveals a progressive increase in the right upper lobe lung mass with a possible superimposed infiltrate. The patient's hemoglobin is 9.9. White blood cell count was normal. Troponin was elevated at 1.1. EKG showed A. fib with a rate of 102 without acute ischemic changes. The patient's oxygen saturations on 2.5 L is in the low 90s. The patient was started on IV antibiotics for his pneumonia. Blood cultures and lactic acid were requested by the hospitalist service. I did not feel the patient required admission based on his pneumonia, however due to his elevated troponin, he will be seen by the hospitalist for further evaluation and care. Impression & Plan Elevated troponin, Pneumonia Discharge Plan Visit Data Chief Complaint: Respiratory Problems Stated Complaint: BREATHING DIFFICULTY ED Provider: Bert Cruz Discharge Problem: Elevated troponin, Pneumonia Patient Disposition: Being Evaluated by Hospitalist Forms Stand Alone Forms: My [facility] Prescriptions Prescriptions: No Action naloxone 4 mg/actuation spray,non-aerosol 1 spray INTNAS Q3M PRN (Reason: opioid overdose) Qty: 2 RF: 0 atorvastatin 20 mg Tablet 20 mg PO HS RF: 0 aspirin [Aspir-Low] 81 mg Tablet,Delayed Release (Dr/Ec) 81 mg PO QAM RF: 0 cholecalciferol (vitamin D3) 1,000 unit Tablet 1,000 unit PO QAM RF: 0 omega 6-uvj-wus-fish oil [Fish Oil] 1,000 mg (120 mg-180 mg) Capsule 1 cap PO QAM RF: 0 lisinopril 20 mg tablet 20 mg PO HS RF: 0 amlodipine 2.5 mg tablet 2.5 mg PO QAM RF: 0 indomethacin 25 mg Capsule 25 mg PO DAILY PRN (Reason: gout) RF: 0 Men's Multivitamin 400-20-300 mcg Tablet 1 tab PO QAM RF: 0 Eliquis 5 mg tablet 5 mg PO BID RF: 0 oxycodone [OxyContin] 10 mg tablet,oral only,ext.rel.12 hr 10 mg PO BID RF: 0 dexamethasone 4 mg tablet 4 mg PO QAM RF: 0 oxycodone 15 mg tablet 15 mg PO Q6H PRN (Reason: Pain) RF: 0 acetaminophen [Tylenol Extra Strength] 500 mg Tablet 500 mg PO Q6H PRN (Reason: Pain) RF: 0 metoprolol tartrate 50 mg tablet 50 mg PO BID RF: 0 Referrals Referrals: Epi Justice DO [Primary Care Provider] - Discharge Problem: Pneumonia Qualifiers: Pneumonia type: due to other aerobic Gram-negative bacteria Laterality: right Lung location: upper lobe of lung Qualified Code(s): J15.6 - Pneumonia due to other Gram-negative bacteria The scribe's documentation has been prepared under my direction and personally reviewed by me in its entirety. I confirm that the note above accurately reflects all work, treatment, procedures, and medical decision making performed by me.
[2019-03-05 06:58] LABS: Basophils # (auto) 0.01 K/uL (0-0.2); Basophils % (auto) 0.1 %; Hematocrit (blood only) 29.5 % (42-52); Hemoglobin 9.9 g/dL (14.0-18.0); Immature Granulocytes # (auto) 0.08 K/uL (0.00-0.02); Immature Granulocytes % (auto) 1.1 %; Lymphocytes # (auto) 0.14 K/uL (1.2-3.4); Lymphocytes % (auto) 1.9 %; Mean Corpuscular Hgb Conc 33.6 g/dL (32-36); Mean Corpuscular Volume 93.9 fL (80-100); Mean Platelet Volume 9.1 fL (7.4-10.4); Monocytes # (auto) 0.15 K/uL (0.11-0.59); Monocytes % (auto) 2.1 %; Neutrophils # (auto) 6.86 K/uL (1.4-6.5); Neutrophils % (auto) 94.8 %; Nucleated RBC # (auto) 0.12 K/uL (0-0); Nucleated RBC % (auto) 1.7 %; Platelet Count 183 K/uL (130-400); RDW Coefficient of Variation 19.8 % (11.5-14.5); RDW Standard Deviation 63.7 fL (36.4-46.3); Red Blood Count 3.14 M/uL (4.7-6.1); White Blood Count 7.24 K/uL (4.8-10.8)
--- NOTE | 2019-03-05 07:01 | XRay Report ---
XR chest 1V portable CLINICAL HISTORY: Chest Pain dyspnea COMPARISON STUDY: 12/08/2018 FINDINGS: Moderate stable cardiomegaly. Prior median sternotomy. Considerable increase in size of right upper lobe mass possibly with a superimposed infiltrate. Lungs otherwise are clear. Diaphragms are smooth. IMPRESSION: 1. Progressive increase in size of a right apical mass, now possibly combined with superimposed infil trate. 2. Moderate stable cardiomegaly. The above report was generated using voice recognition software. It may contain grammatical, syntax or spelling errors. Electronically signed by: Anish Walker M.D. 03/05/2019 7:00 AM
[2019-03-05 07:21] LABS: Albumin Level 2.8 gm/dl (3.4-5.0); BUN Creatinine Ratio 44.5 (10-20); Calcium 8.2 mg/dl (8.5-10.1); Creatinine Clr Calc Pharmacy 130.7 ml/min; Est GFR (African American) 119.3; Potassium 3.6 mmol/L (3.5-5.1)
[2019-03-05 07:31] LABS: Albumin Globulin Ratio 0.9 (0.9-2); Bilirubin,Total 1.1 mg/dl (0.2-1); Globulin 3.2 gm/dl (2.5-4.0); Troponin I 1.14 ng/ml (0-0.045)
[2019-03-05] MEDS ORDERED: cefTRIAXone SODIUM 1,000 MG in DEXTROSE 5% 50 ML IV STA (08:14)
[2019-03-05] MEDS ORDERED: AZITHROMYCIN 500 MG in DEXTROSE 5% 250 ML IV STA (08:14)
[2019-03-05] MEDS ORDERED: ACETAMINOPHEN 325 MG TAB PO PRN (08:48)
[2019-03-05] MEDS ORDERED: ONDANSETRON INJ 2 MG/ML 2 ML VIAL IV PRN (08:48)
--- NOTE | 2019-03-05 08:48 | History & Physical Report ---
Date of Service March 05, 2019 Assessment & Plan (1) Elevated troponin: - Admit to tele for observation for r/o - Trend cardiac biomarkers, initial set 1.140, will trend x 2 more sets - EKG reviewed as above, no acute ST wave inversions or changes, chest pain is reproducible with palpation along the R chest wall anteriorly - Check 2 D echo - If negative enzymes can consider a stress test tomorrow morning. - Consider cardiology consultation - follows with Dr. Salinas - PT/OT consulted (2) Pneumonia: - Suspected - CXR reviewed showing possible infiltrate along with increased size of a right apical mass, known cancerous mets - Azithromycin and ceftriaxone IV administered in the ER, will continue with p.o. azithromycin starting tomorrow morning -Sputum culture -Checking blood cultures x2 -Checking lactic acid -Mucinex, Tessalon Perles, flutter therapy - O2 as needed, wears supplemental O2 at 2.5 L HS at baseline - Possible that hypoxia causing increased bump in troponin (3) Prostate cancer: - prostate adenocarcinoma orig diagnosed in 2013 - with possible metastasis vs lung primary with mets to the 4th right rib, with metastasis to L2 pathological fracture, s/p palliative radiation and currently undergoing chemotherapy, (4) Bony metastasis: - Involving L2 (5) Lung cancer: - Primary vs if mets from prostate cx - Follows with Dr. Duarte - Tylenol, indomethacin, dexamethasone, oxycodone 15 mg Q6H prn, and oxycodone 10 mg BID (6) History of coronary artery bypass graft: - Hx of such in 2003, follows with Dr. Salinas, cardiology as outpt (7) Aneurysm of heart: - Check 2D echo with elevated troponin (8) AAA (abdominal aortic aneurysm): - AAA Last measurement of 4.8 cm in 2017 by 2D echo, also distal common iliac at 1.7 cm (9) Atrial fibrillation: -Chronic, noted to have elevated HR in the 130s during my exam, discussed with ER attending, will order IV dose of Lopressor now, administer morning meds including metoprolol tartrate 50 mg BID now. - Pt denies flutter or palpitations - Cont eliquis (10) Hypertension: -Continue amlodipine 2.5 daily, metoprolol tartrate 50 mg BID, ASA 81 mg (11) Hyperlipidemia: -Continue atorvastatin 20 mg HS (12) Osteoarthritis: -Continue pain control and medications as above (13) Gout: - Stable (14) Sarcopenia: - Decreased albumin - Consider protein supplementation, boost (15) RAFAELA (obstructive sleep apnea): -Patient does not wear CPAP at night, only nasal cannula at 2.5L (16) DVT prophylaxis: -Kahlil Vasquez Disposition: Patient from home, likely to be in the hospital for 1 night History of Present Illness Primary Care Provider: Epi Justice DO This is a 79 yo M with PMHx of prostate adenocarcinoma with possible metastasis vs lung primary with mets to the 4th right rib, with metastasis to L2 pathological fracture, s/p palliative radiation and currently undergoing chemotherapy, follows with pain management for chronic narcotic use for palliation, CAD s/p bypass grafting x2 in 2004, HTN, HLD, cardiac aneurysm, AAA measuring 4.8 cm in 2017, distal common iliac aneurysm measuring 1.7 cm, A. fib on eliquis, osteoarthritis, gout, obstructive sleep apnea, who presents with right substernal chest pain and shortness of breath. Patient was found to have an elevated troponin of 1.140 in the ER. Patient notes that his chest pain woke him from sleep at 4 AM today, right- sided, noted as tender with pressing over the right anterior chest region. He does not have a chest Mediport. He reports that right side of chest is more sore with cough. He also notes that he has had a rattling cough for a few days now, bringing up clear to white mucus, occasionally with some blood streaking. He denies coughing up blood clots or diffuse bleeding. He reports that he does wear 2.5 L supplemental O2 at bedtime, but not throughout the day, but is currently requiring it here. He denies any fevers or chills or sweats. He reports doing well overall at home, lives with his . Overall he feels fairly close to baseline. Afebrile, no WBC, coarse breath sounds, elevated troponin. Admit for chest pain and possible superimposed pneumonia with hypoxia. Allergies Allergy/AdvReac Type Severity Reaction Status Date / Time fentanyl AdvReac Severe delirium Verified 03/05/19 07:07 Home Medications Home Medications Medication Instructions Recorded Confirmed Type aspirin [Aspir-Low] 81 mg PO QAM 10/27/18 03/05/19 History atorvastatin 20 mg PO HS 10/27/18 03/05/19 History cholecalciferol (vitamin D3) 1,000 unit PO QAM 10/27/18 03/05/19 History omega 8-mfl-fzk-fish oil [Fish Oil] 1 cap PO QAM 10/27/18 03/05/19 History amlodipine 2.5 mg PO QAM 11/16/18 03/05/19 History lisinopril 20 mg PO HS 11/16/18 03/05/19 History acetaminophen [Tylenol Extra 500 mg PO Q6H PRN 12/08/18 03/05/19 History Strength] metoprolol tartrate 50 mg PO BID 12/08/18 03/05/19 History naloxone 4 mg/actuation nasal spray 1 spray INTNAS Q3M PRN #2 ea 02/26/19 03/05/19 Rx apixaban [Eliquis] 5 mg PO BID 03/05/19 03/05/19 History dexamethasone 4 mg PO QAM 03/05/19 03/05/19 History indomethacin 25 mg PO DAILY PRN 03/05/19 03/05/19 History sffjvfse-hka-igmbq-vit K-lycop 1 tab PO QAM 03/05/19 03/05/19 History [Men's Multivitamin] oxycodone 15 mg PO Q6H PRN 03/05/19 03/05/19 History oxycodone [OxyContin] 10 mg PO BID 03/05/19 03/05/19 History Past Med/Surg History Medical History RAFAELA (obstructive sleep apnea) Elevated troponin (Acute) Pneumonia (Acute) Lung cancer (Chronic) Hyperlipidemia (Chronic) Hypertension (Chronic) Aneurysm of heart (Resolved) FOLLOWS WITH DR. SALINAS>ANEURYSM "SMALL" Cancer (Chronic) PROSTATE-RADIATION SEEDS Osteoarthritis (Chronic) Gout (Chronic) Lung mass (Chronic) NOTED FROM DR. NAVARRO'S RECORDS AAA (abdominal aortic aneurysm) (Chronic) 3.3 cm infrarenal on 01/22/17 Atrial fibrillation (Chronic) Surgical History History of cardiac cath (Resolved) OVER 10 YEARS AGO History of coronary artery bypass graft (Resolved) OVER 10 YEARS AGO/2 VESSELS REPAIR IN [facility] H/O eye surgery (Resolved) RT (CANCER REMOVED) History of tooth extraction (Resolved) History of appendectomy (Resolved) History of colonoscopy (Resolved) H/O prostate biopsy (Resolved) History of repair of rotator cuff (Resolved) LEFT History of cataract surgery (Resolved) RT/LEFT Family History Other Coronary heart disease Hypertension Prostate cancer Stroke Social History Preferred Language: Iranian Communication Ability: Impaired Visual Impairment: No Limitations Hat Steamer Required: No Beliefs That Will Affect Care: None marital status: Current Living Situation: Spouse Feels Safe at Home: Yes Smoking Status: Former smoker Tobacco Type: cigarettes ; Cigarettes Per Day: 40 ; Second Hand Exposure: No ; Hx Alcohol Use: No Hx Substance Use: No Review of Systems Review of Systems: Constitutional: No fever, sweats or chills Eyes: No diplopia, no worsening or blurred vision ENT: normal hearing, no trouble swallowing Respiratory: No cough, sputum, dyspnea at rest or on exertion Cardiovascular:+ Chest pain as per HPI. No tightness or palpitations Abdomen: No pain, nausea, vomiting, diarrhea or constipation Musculoskeletal: No joint pain, calf pain, swelling Neurologic: No weakness, numbness/tingling, + uses walker/cane for balance problems Psychiatric: No anxiety or depression Skin: No rash or itch Physical Exam Physical Exam: General: awake, alert, no apparent distress Head: Normocephalic, atraumatic ENT: PERRL, EOMI, no pharyngeal exudate, mucous membranes moist Chest: 2.5 mL via NC, coarse breath sounds throughout, worse in the right lobe compared to the left, slight wheezing. Cardiac: Irregularly irregular, heart rate in the 130s, no murmur, no JVD, normal peripheral pulses, good capillary refill Abdominal: NABS x 4 quadrants, soft, nontender to palpation, no rebound, guarding or tenderness Extremities: Normal inspection, no peripheral edema or erythema, calfs nontender to palpation Psych: Normal mood and affect Neuro: AAO x 3, no gross motor deficits, speech is clear, no peripheral sensory deficits Results & Data Vital Signs (Past 12 Hours) Vital Signs Temp Pulse Pulse Resp BP BP Pulse Ox 03/05/19 08:00 95 H 18 104/67 93 08/15/19 06:28 37.0 C 105 H 26 H 107/84 88 L Diagnostic Findings XR chest 1V portable CLINICAL HISTORY: Chest Pain dyspnea COMPARISON STUDY: 12/08/2018 FINDINGS: Moderate stable cardiomegaly. Prior median sternotomy. Considerable increase in size of right upper lobe mass possibly with a superimposed infiltrate. Lungs otherwise are clear. Diaphragms are smooth. IMPRESSION: 1. Progressive increase in size of a right apical mass, now possibly combined with superimposed infiltrate. 2. Moderate stable cardiomegaly. ECG Additional Comments: 05-MAR-2019 06:31:58 [facility]-EDSTAT ROUTINE RETRIEVAL Atrial fibrillation with rapid ventricular response Low voltage QRS Nonspecific T wave abnormality Abnormal ECG When compared with ECG of 08-DEC-2018 07:24, Nonspecific T wave abnormality, worse in Lateral leads 25mm/s 10mm/mV 150Hz 9.0.8 12SL 241 BEL: 13 Referred by: REFERRED SELF Unconfirmed Vent. rate 102 BPM IN interval * ms QRS duration 94 ms /QTc 348/453 ms P-R-T axes * 73 215 Code Status & VTE Plan Code Status DNR-discussed with the patient at bedside Supervising Physician Co-Signing Physician Notes I reviewed above note and agree with it. During my face to face encounter with patient, I performed a history and physical examination. I answered all of the patient's questions. This is a [facility] hospital patient. I signed out to the [facility] staff. PG Care Time/CCT Total # of Minutes Spent Total Time Spent with Patient: Total time spent is greater than 50% in coordination of care (as documented) at patient's floor/unit and/or counseling patient: (1) Pneumonia Laterality: right Lung location: upper lobe of lung Pneumonia type: due to other aerobic Gram-negative bacteria Qualified Code(s): J15.6 - Pneumonia due to other Gram-negative bacteria
[2019-03-05] MEDS ORDERED: METOPROLOL TARTRATE 1 MG/ML VIAL IV STA (09:08)
[2019-03-05] MEDS ORDERED: ACETAMINOPHEN 500 MG TAB PO PRN (10:33)
[2019-03-05] MEDS ORDERED: NALOXONE INTNAS PRN (10:33)
[2019-03-05] MEDS ORDERED: OXYCODONE HCL IR 5 MG TAB (IMMEDIATE RELEASE) PO PRN (10:33)
[2019-03-05] MEDS ORDERED: SODIUM CHLORIDE 0.9% 1000ML 1,000 ML IV ONE (10:33)
[2019-03-05] MEDS ORDERED: LEVALBUTEROL 1.25MG/0.5ML NEB NEB SCH (10:33)
[2019-03-05] MEDS ORDERED: INDOMETHACIN 25 MG CAP PO PRN (10:33)
[2019-03-05] MEDS: OMEGA-3 (PURIFIED FISH OIL) 1 GM CAP PO SCH ×2 (11:40→11:50)
[2019-03-05] MEDS: METOPROLOL TARTRATE 50 MG TAB PO SCH ×2 (11:40→20:57)
[2019-03-05] MEDS: CEROVITE ADV FORMULA TAB PO SCH (11:40)
[2019-03-05] MEDS: OXYCODONE HCL 10 MG TABCR (OXYCONTIN) PO SCH ×2 (11:40→20:56)
[2019-03-05] MEDS: CHOLECALCIFEROL 1,000 UNITS TAB PO SCH (11:41)
[2019-03-05] MEDS: AMLODIPINE BESYLATE 5 MG TAB PO SCH (11:41)
[2019-03-05] MEDS: ASPIRIN 81 MG ECTAB PO SCH (11:41)
[2019-03-05] MEDS: APIXABAN 5 MG TABLET PO SCH ×2 (11:41→20:57)
[2019-03-05] MEDS ORDERED: OPTIRAY 320 125ml IV PRN (12:51)
--- NOTE | 2019-03-05 13:14 | CT Scan Report ---
CT angio chest PE protocol CLINICAL HISTORY: 79 years-old Male presenting with back pain, chest pain, shortness of breath, clini sera concern for pulmonary embolus, history of lung cancer. TECHNIQUE: Multidetector CT angiography of the chest was performed after administration of intravenou s contrast. 3-D volumetric and/or maximum intensity projection (MIP) images were subsequently reconst ructed for review. IV contrast: 119 mL of Optiray 320. One or more dose lowering techniques were used consistent with the principles of ALARA (as low as reasonably achievable), including automatic expos ure control, mA or kV adjustment to individual patient size, and/or use of iterative reconstruction. COMPARISON: Noncontrast CT chest from 10/20/2018 and PET/CT from 11/19/2018. CT DOSE (mGy.cm): The estimated cumulative dose is 1129.24 mGy.cm. FINDINGS: Anthropology Lecturer topogram: Lung opacity. Pulmonary vasculature: The study is suboptimal for the assessment of the pulmonary vascular tree secondary to respiratory mo tion artifact. No filling defect within the pulmonary arteries to suggest embolus. Main pulmonary art maurisio is not enlarged, however, there is dilatation of the right main pulmonary artery. No flattening o f the interventricular septum. No intracardiac filling defect. No reflux of contrast into the hepatic veins. Remaining chest: Soft tissues: Normal thyroid and thoracic inlet. Gynecomastia. Enlarged precarinal lymph node measuri ng 14 mm in short axis as on prior exam. Additional smaller mediastinal lymph nodes as on prior. Righ t supraclavicular lymphadenopathy is not as apparent as on prior PET. Atherosclerosis of the aorta. M edian sternotomy wires with coronary artery bypass grafting. Tortuosity of the branch vessels of the aortic arch may suggest chronic hypertension. Multichamber enlargement of the heart. Coronary artery and aortic valve calcification. Small pericardial effusion, unchanged. Trace pleural thickening in th e right posterior pleural space at the site of the prior pleural-based or extrapleural mass. No pleur al effusion. Well-defined hypodense hepatic lesion in the right hepatic lobe has increased in size fr om prior. The gallbladder is likely physiologically distended. Lungs and airways: No pneumothorax. Bronchial wall thickening diffusely. Pulmonary arteries are not s ignificantly enlarged relative to adjacent bronchi. No interlobular septal thickening. Dense solid co nsolidation in the right upper lobe. Patchy groundglass and solid infiltrates in a peribronchovascula r distribution in the remaining lobes. All 5 lobes are affected. Musculoskeletal: Osseous erosion of the posterior right fourth rib as on prior exam. Moderate to tammy re compression deformity of L2 with osseous destruction of the underlying vertebral body consistent w ith a pathologic fracture this was not included within the field of view on the prior exam. IMPRESSION: 1. Multifocal consolidation with dense involvement of the right upper lobe. This represents signific ant interval increase in solid consolidation since the prior exam, which previously demonstrated find ings suspicious for malignancy. This may indicate significant progression of malignancy or a superimp osed multifocal pneumonia. Consider bronchoscopy. 2. Mediastinal lymphadenopathy is unchanged from prior exam. 3. Destructive osseous lesion in the posterior right fourth rib with decreased associated extrapleur al/pleural base mass. 4. Pathologic moderate to severe compression fracture of L2 with a presumed underlying metastatic le juan as seen on prior PET/CT. The compression deformity may have increased from November. 5. Increased size of the known right hepatic lobe metastasis, consistent with progression of disease Electronically signed by: Rashaun Hart M.D. 03/05/2019 1:12 PM
[2019-03-05] MEDS: LEVALBUTEROL HCL 1.25 MG/3 ML NEB INH SCH ×2 (13:16→19:04)
[2019-03-05] MEDS: BENZONATATE 100 MG CAPSULE PO SCH ×2 (13:18→20:56)
[2019-03-05] MEDS: dexAMETHasone 4 MG TAB PO SCH (13:19)
--- NOTE | 2019-03-05 13:41 | Hospitalist Progress Note ---
Date of Service March 05, 2019 Assessment & Plan (1) Hypoxia: (2) Shortness of breath: (3) Pneumonia: Initial Lactate: 2.4, Procalcitonin: 0.86 CXR: Progressive increase in size of a right apical mass, now possibly combined with superimposed infiltrate. CTA CHEST TO R/O PE: 1. Multifocal consolidation with dense involvement of the right upper lobe. This represents significant interval increase in solid consolidation since the prior exam, which previously demonstrated findings suspicious for malignancy. This may indicate significant progression of malignancy or a superimposed multifocal pneumonia. Consider bronchoscopy. 2. Mediastinal lymphadenopathy is unchanged from prior exam. 3. Destructive osseous lesion in the posterior right fourth rib with decreased associated extrapleural/pleural base mass. 4. Pathologic moderate to severe compression fracture of L2 with a presumed underlying metastatic lesion as seen on prior PET/CT. The compression deformity may have increased from November. 5. Increased size of the known right hepatic lobe metastasis, consistent with progression of disease -Was given Rocephin, Zithromax IV in ER. -IVF were on hold secondary to lung crackles -Currently pt restless, tolerates oxymask and at rest HR low 100's, O2: 93% on oxymask, R: 28. -Repeat lactate -Pending blood cultures, sputum culture -Zosyn, vancomycin -Supplemental oxygen -Xopenex nebs -Gentle IVF -Monitor CBC, BMP (4) Elevated troponin: Pt was found to have Troponin: 1.14. EKG afib, nonspecific t wave changes, worse to inferior leads Pt in Afib RVR, renal functions stable, no PE seen on CTA chest Initial ER presentation with right sided CP, no current CP reported -Trend troponin -Echo -Continue aspirin, metoprolol, statin -Cardiology consult - follows with Dr Salinas (5) Atrial fibrillation: A-fib RVR rate up to 130's. Pt did not have his am metoprolol and was given Lopressor 5mg and received his am dose of metoprolol 50mg around 11:40am. -Continue metoprolol po -Lopressor 5mg IV prn tachycardia -Continue Eliquis (6) Malignant neoplasm of upper lobe, right bronchus or lung: H/O prostate cancer H/O non-small cell lung cancer, RUL mass with invasion of the right fourth rib, with metastasis to liver and lumbar spine S/P palliative radiation. Current chemo -Consult oncology, patient follows with Dr. Duarte (7) RAFAELA (obstructive sleep apnea): Pt normally on oxygen 2.5L HS for h/o RAFAELA and is not on CPAP, otherwise not on oxygen during day. -Supplemental oxygen HS (8) Hypertension: Stable Continue amlodipine, metoprolol (9) Hyperlipidemia: -Continue atorvastatin DVT Prophylaxis -apixaban Follows with Dr Guzman for routine care Pt was seen and care coordinated with Dr Caraballo. See addendum Supervising Physician Co-Signing Physician Notes Attending addendum: The patient was seen and examined in telemetry unit He has right upper lobe lung cancer with metastasis and chronic pain, atrial fibrillation on anticoagulation and other problem as mentioned in H&P He has been having R sided chest pain which is worse with cough. Reported productive cough white with blood tinge. Pt with hx Afib. In ER this morning pt was noted to be in A-fib RVR rate up to 130's. Pt did not have his am metoprolol and was given Lopressor 5mg and received his am dose of metoprolol 50mg around 11:40am. 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 Generally weak but moves all extremities Admission labs and imaging studies reviewed Has obstructive pneumonia secondary to lung cancer with mets Atrial fibrillation with RVR with increasing cardiac troponin Discussed with the oncologist and he will be evaluated in the hospital As with assessment plan as outlined above by LUDA Aguilera Dr Subjective Pt was admitted this morning by [facility] Hospitalist team. Pt's PCP Dr Guzman. [facility] team to take over. It is reported pt having R sided chest pain which is worse with cough. Reported productive cough white with blood tinge. Pt with hx Afib. In ER this morning pt was noted to be in A-fib RVR rate up to 130's. Pt did not have his am metoprolol and was given Lopressor 5mg and received his am dose of metoprolol 50mg around 11:40am. Pt was found to have Troponin: 1.14. EKG afib, nonspecific t wave changes, worse to inferior leads Pt was also noted to by hypoxic and is currently on oxymask 10L with sats 93%. Pt normally on oxygen 2.5L HS for h/o RAFAELA and is not on CPAP, otherwise not on oxygen during day. Was given xopenex neb in ER. Had Lactate: 2.4 Procalcitonin: 0.86 CXR: Progressive increase in size of a right apical mass, now possibly combined with superimposed infiltrate. Was given Rocephin, Zithromax IV in ER. Currently pt restless, tolerates oxymask and at rest HR low 100's, O2: 93% on o xymask, R: 28. Currently pt c/o SOB, denies CP, states wants to go home. Physical Exam Physical Exam: General: Chronic ill appearing, +restless, anxious on oxymask, moderately developed, moderately nourished Head: normocephalic, atraumatic Eyes: PERRL, conjunctiva non-injected, anicteric ENT: normal inspection external ears, nose, mucous membranes moist Neck: supple, trachea midline, non-tender Lungs: on oxymask 10L, sats 93%, R: 28, +course crackles breath sounds throughout CV: irregularly irregular, rate 108, trace pretibial edema Abd: normal BS, soft, non-tender Ext: no cyanosis, no calf tenderness Neuro: Alert, oriented to person, anxious affect Skin: warm, dry Results & Data Vital Signs (Past 12 Hours) Vital Signs Temp Pulse Pulse Resp BP BP Pulse Ox 03/05/19 13:17 114 H 28 H 93 03/05/19 11:17 107 H 30 H 95 03/05/19 10:01 133 H 26 H 93 03/05/19 08:40 36.8 C 110 H 28 H 116/80 91 03/05/19 08:00 95 H 18 104/67 93 03/05/19 06:28 37.0 C 105 H 26 H 107/84 88 L Laboratory Results Short CBC 03/05/19 Range/Units 06:51 WBC 7.24 (4.8-10.8) K/uL Hgb 9.9 L (14.0-18.0) g/dL Hct 29.5 L (42-52) % Plt Count 183 (130-400) K/uL BMP 03/05/19 06:51 Sodium 141 Potassium 3.6 Chloride 107 Carbon Dioxide 29 BUN 22 H Creatinine 0.51 L Glucose 105 H Calcium 8.2 L Cardiac Enzymes 03/05/19 Range/Units 06:51 Troponin I 1.140 H* (0-0.045) ng/ml Liver Function 03/05/19 Range/Units 06:51 Total Bilirubin 1.1 H D (0.2-1) mg/dl AST 27 (15-37) U/L ALT 43 (12-78) U/L Alkaline Phosphatase 89 (45-117) U/L Albumin 2.8 L (3.4-5.0) gm/dl Diagnostic Findings CTA CHEST: IMPRESSION: 1. Multifocal consolidation with dense involvement of the right upper lobe. This represents significant interval increase in solid consolidation since the prior exam, which previously demonstrated findings suspicious for malignancy. This may indicate significant progression of malignancy or a superimposed multifocal pneumonia. Consider bronchoscopy. 2. Mediastinal lymphadenopathy is unchanged from prior exam. 3. Destructive osseous lesion in the posterior right fourth rib with decreased associated extrapleural/pleural base mass. 4. Pathologic moderate to severe compression fracture of L2 with a presumed underlying metastatic lesion as seen on prior PET/CT. The compression deformity may have increased from November. 5. Increased size of the known right hepatic lobe metastasis, consistent with progression of disease (1) Pneumonia Laterality: right Lung location: upper lobe of lung Pneumonia type: due to other aerobic Gram-negative bacteria Qualified Code(s): J15.6 - Pneumonia due to other Gram-negative bacteria
[2019-03-05] MEDS ORDERED: CONSULT PHARMACY STA (14:06)
[2019-03-05] MEDS ORDERED: VANCOMYCIN CONSULT ACTIVE PRN (14:29)
[2019-03-05] MEDS ORDERED: PIPERACILL/TAZOBAC CONSULT ACTIVE PRN (14:29)
[2019-03-05] MEDS ORDERED: PIPERACILLIN/TAZOBACTAM 3.375 GM in DEXTROSE 5% 100 ML IV ONE (14:30)
--- NOTE | 2019-03-05 14:38 | Pharmacy Report ---
Pharmacy Abx Initial Consult - Date of Service March 05, 2019 - Pharmacy Dosing Scope Date of Consult: 03/05/19 Consultation requested by: Paula Villela [facility] is consulted to initiate Vanco + Zosyn IV dosing therapy, order appropriate labs and adjust drug dose/frequency. - Subjective The patient is a 79 year old M admitted on 03/05/19 14:04. - Objective Height: 5 ft 9 in Weight: 87.52 kg Vital Signs (Past 12hrs): Vital Signs Temp Pulse Pulse Resp BP BP Pulse Ox 03/05/19 13:17 114 H 28 H 93 03/05/19 11:17 107 H 30 H 95 03/05/19 10:01 133 H 26 H 93 03/05/19 08:40 36.8 C 110 H 28 H 116/80 91 03/05/19 08:00 95 H 18 104/67 93 03/05/19 06:28 37.0 C 105 H 26 H 107/84 88 L Lab Results (24hrs): Laboratory Tests (24 Hours) 03/05/19 03/05/19 03/05/19 10:55 06:51 06:51 WBC 7.24 Neut # (Auto) 6.86 H Creatinine 0.51 L Est Cr Clr Drug Dosing 130.7 Procalcitonin 0.86 H Micro Results: 03/05/19 09:21 Aerobic Blood Culture - Pending Blood Anaerobic Blood Culture - Pending 03/05/19 09:20 Aerobic Blood Culture - Pending Blood Anaerobic Blood Culture - Pending - Risk Factors for Resistance * Immunocompromised (chemotherapy) - Assessment & Plan Assessment 79 year old M initiated on IV Vanco + Zosyn for PNA Pt received IV contrast 03/05 which in combination with vanco+zosyn can induce ABBIE - will monitor Scr/urine output daily and adjust dosing as warranted Plan Vancomycin IV * Estimated PK Parameters: Vd 0.6 L/kg, Gideon 0.067 hr-1, t1/2 10.3hr * Loading dose: 2,000 mg (23 mg/kg) * Maintenance dose: 1,250 mg IV (14 mg/kg) every 12 hours * Goal trough level for Pulmonary : 15 to 20 mcg/mL * Troughlevel ordered for 03/07/19 @ 1430 (prior to 4th maintenance dose) Piperacillin/tazobactam * 3.375 g bolus administered over 30 minutes, then 3.375 g IV extended infusion every 8 hours for CrCl greater than 20 mL/min Pharmacy will continue to follow and will adjust dose/frequency as necessary. Thank you.
[2019-03-05] MEDS: LORazepam 0.25 MG/0.5 ML VIAL IV PRN ×2 (14:40→21:15)
[2019-03-05] MEDS: SODIUM CHLORIDE 0.9% 1000ML 1,000 ML IV SCH (14:43)
[2019-03-05] MEDS ORDERED: VANCOMYCIN HCL 2,000 MG in SODIUM CHLORIDE 0.9% 500 ML IV SCH (14:45)
[2019-03-05] MEDS ORDERED: METOPROLOL TARTRATE 1 MG/ML VIAL IV PRN (15:17)
[2019-03-05] MEDS ORDERED: METOPROLOL TARTRATE 1 MG/ML VIAL IV SCH ×2 (16:00→18:00)
[2019-03-05 16:07] LABS: Allen Test Pos (Pos); Base Excess ABG -0.2 mEq/L (-9-1.8); HCO3 ABG 23 mmol/L (19-24); Oxygen Saturation ABG 95.4 % (90-95); PCO2 ABG 31 mmHg (35-46); PO2 ABG 77 mm/Hg (80-95); pH ABG 7.49 (7.35-7.45)
[2019-03-05] MEDS: PIPERACILLIN/TAZOBACTAM 3.375 GM in DEXTROSE 5% 100 ML IV SCH (20:49)
[2019-03-05] MEDS: guaiFENesin 600 MG TABCR PO SCH (20:57)
[2019-03-05] MEDS ORDERED: ATORVASTATIN 20 MG TAB PO SCH (21:00)
[2019-03-05] MEDS ORDERED: LISINOPRIL 20 MG TAB PO SCH (21:00)
[2019-03-06] MEDS: LEVALBUTEROL HCL 1.25 MG/3 ML NEB INH SCH ×3 (02:08→16:00)
[2019-03-06] MEDS: SODIUM CHLORIDE 0.9% 1000ML 1,000 ML IV SCH (03:06)
[2019-03-06] MEDS: VANCOMYCIN HCL 1,250 MG in SODIUM CHLORIDE 0.9% 250 ML IV SCH ×2 (03:06→15:46)
[2019-03-06] MEDS: LORazepam 0.25 MG/0.5 ML VIAL IV PRN ×2 (04:04→12:09)
[2019-03-06] MEDS: PIPERACILLIN/TAZOBACTAM 3.375 GM in DEXTROSE 5% 100 ML IV SCH ×2 (04:20→11:22)
[2019-03-06 06:01] LABS: Hematocrit (blood only) 26.9 % (42-52); Hemoglobin 9.1 g/dL (14.0-18.0); Mean Corpuscular Hgb Conc 33.8 g/dL (32-36); Mean Corpuscular Volume 93.7 fL (80-100); Mean Platelet Volume 9.4 fL (7.4-10.4); Platelet Count 122 K/uL (130-400); RDW Coefficient of Variation 19.5 % (11.5-14.5); RDW Standard Deviation 65.1 fL (36.4-46.3); Red Blood Count 2.87 M/uL (4.7-6.1); White Blood Count 2.93 K/uL (4.8-10.8)
[2019-03-06 06:28] LABS: Albumin Level 2.3 gm/dl (3.4-5.0); BUN Creatinine Ratio 34.2 (10-20); Calcium 8.1 mg/dl (8.5-10.1); Creatinine Clr Calc Pharmacy 128.2 ml/min; Est GFR (African American) 118.4; Est GFR (Non-African American) 102.1; Potassium 4.1 mmol/L (3.5-5.1)
[2019-03-06 06:31] LABS: Albumin Globulin Ratio 0.7 (0.9-2); Bilirubin,Total 1.4 mg/dl (0.2-1); Globulin 3.2 gm/dl (2.5-4.0); Total Protein 5.5 gm/dl (6.4-8.2)
[2019-03-06] MEDS: OMEGA-3 (PURIFIED FISH OIL) 1 GM CAP PO SCH ×2 (07:43→09:01)
[2019-03-06] MEDS: METOPROLOL TARTRATE 50 MG TAB PO SCH ×2 (07:43→09:00)
[2019-03-06] MEDS: guaiFENesin 600 MG TABCR PO SCH ×2 (07:44→09:00)
[2019-03-06] MEDS: CHOLECALCIFEROL 1,000 UNITS TAB PO SCH ×2 (07:44→09:01)
[2019-03-06] MEDS: AMLODIPINE BESYLATE 5 MG TAB PO SCH ×2 (07:44→09:01)
[2019-03-06] MEDS: APIXABAN 5 MG TABLET PO SCH ×2 (07:44→09:00)
[2019-03-06] MEDS: dexAMETHasone 4 MG TAB PO SCH ×2 (07:44→09:00)
[2019-03-06] MEDS: CEROVITE ADV FORMULA TAB PO SCH ×2 (07:45→09:01)
[2019-03-06] MEDS: ASPIRIN 81 MG ECTAB PO SCH ×2 (07:45→09:00)
[2019-03-06] MEDS: BENZONATATE 100 MG CAPSULE PO SCH ×3 (07:45→13:39)
[2019-03-06] MEDS ORDERED: AZITHROMYCIN 250 MG TAB PO SCH (09:00)
[2019-03-06] MEDS: OXYCODONE HCL 10 MG TABCR (OXYCONTIN) PO SCH (09:01)
[2019-03-06] MEDS: METOPROLOL TARTRATE 1 MG/ML VIAL IV SCH ×2 (09:19→16:04)
--- NOTE | 2019-03-06 10:08 | Consultation Report ---
DATE OF CONSULTATION: 03/06/2019 REASON FOR CONSULTATION: A 79-year-old gentleman with metastatic nonsmall cell lung cancer, admitted for presumed pneumonia. HISTORY OF PRESENT ILLNESS: The patient is a pleasant unfortunate 79-year-old gentleman well known to [facility], currently under my care with metastatic nonsmall cell lung cancer. The patient was recently started on combination of paclitaxel, carboplatin and Avastin, received 5 courses thus far. His last dose was administered this past Saturday. Apparently on the morning of admission, the patient arose from his sleep complaining of right-sided pain specifically over the right anterior chest region. He reported increase intensity of pain upon coughing. He has had a rattling cough for couple of days, which is semi-productive. The patient's stepdaughter also reports the patient has had significant mood liability over the past couple of days, becoming increasingly difficult to manage at home. The patient has been informed of his diagnosis and overall prognosis and unfortunately has not been terribly realistic with his status. He is acutely ill, in fact at bedside today. He is very somnolent. He has a nonrebreather on board presently. CTA of the chest clearly suggest pneumonia forming within the right upper lobes representing significant interval increase in solid consolidation since prior exam. The interpreting radiologist suggests this may indicate progression versus superimposed multifocal pneumonia. Additionally, increased size of the right hepatic lobe mass is noted as well. As I informed the hospitalist to contact me about the patient's admission a bit early in his treatment cycle to determine rather he is progressing, but clearly if he has superimposed pneumonia, needs to be treated aggressively. Discussed therapeutic approach with the patient's stepdaughter who is not his POA that it is reasonable to continue supportive care, antibiotics, blood products, supplemental oxygen, but in light of his prognosis, would consider making him DNR/DNI. PAST MEDICAL HISTORY: Includes hyperlipidemia, hypertension, cardiac aneurysm, osteoarthritis, gout, abdominal aortic aneurysm, atrial fibrillation. PAST SURGICAL HISTORY: Cardiac catheterization, coronary artery bypass grafting, eye surgery, tooth extraction, appendectomy. He has had prostate biopsy in the past, repair of left rotator cuff and cataract surgery. MEDICATIONS: Prior to admission include aspirin 81 mg p.o. daily, atorvastatin 20 mg p.o. daily, cholecalciferol 1000 units p.o. daily, omega-3 one capsule p.o. daily, amlodipine 2.5 mg p.o. daily, lisinopril 20 mg p.o. daily, acetaminophen 500 mg p.o. q. 6 hours, metoprolol 50 mg p.o. b.i.d., naloxone spray q. 3 hours p.r.n., apixaban 5 mg p.o. b.i.d., dexamethasone 4 mg p.o. q.a.m., indomethacin 25 mg p.o. daily p.r.n., oxycodone 15 mg p.o. q. 6 hours p.r.n., OxyContin 10 mg p.o. b.i.d. FAMILY HISTORY: Positive for coronary artery disease, hypertension, prostate cancer and stroke. ALLERGIES: PAROXYSMAL REACTION TO FENTANYL. SOCIAL HISTORY: The patient is retired. He is . He was a reformed smoker and occasionally consumes beer, wine and hard liquor. REVIEW OF SYSTEMS: Unobtainable because of the patient's mental function. PHYSICAL EXAMINATION: GENERAL: The patient is obtunded, but does not appear to be in distress. VITAL SIGNS: Temperature 36.6, pulse 119, respiratory rate 28, blood pressure 135/87. SKIN: Without rash or lesion. HEENT: Atraumatic, normocephalic. Eyes: There is no scleral icterus, did not do pupil examination. Nares are patent without rhinorrhea or discharge. Throat clear. No buccal lesions or ulcerations. NECK: Supple. Trachea midline. HEART: Tachy, but regular. LUNGS: Clear to auscultation bilaterally. ABDOMEN: Soft, nontender, nondistended. EXTREMITIES: No clubbing, cyanosis or edema. NEUROLOGIC: Again appears to be grossly intact, but thorough neuro exam not performed. LABORATORY DATA: WBC count 2930, hemoglobin 9.1, platelet count 122,000. Sodium 139, potassium 4.1, chloride 107, carbon dioxide 28, BUN 18, creatinine 0.52. Total bilirubin 1.4, albumin 2.3. IMPRESSION: 1. Elevated troponin. 2. Pneumonia, right upper lobe. 3. Prostate cancer. 4. Metastatic nonsmall cell lung cancer with suspected progression. 5. Coronary artery disease. 6. Abdominal aortic aneurysm. 7. Hypoalbuminemia. PLAN: The patient is a pleasant unfortunate 79-year-old gentleman well known to [facility], recently diagnosed metastatic nonsmall cell lung cancer. The patient has received palliative radiation therapy for bony lesions in the past. He was recently started on combination of paclitaxel, carboplatin and Avastin. The CTA of the chest done during admission clearly suggests he is progressing. He has had 5 doses of chemotherapy in total, which is a bit early to deem a treatment failure, but nonetheless in light of his comorbid issues and overall prognosis, I would agree to make him DNR/DNI. I spoke to this with the patient's stepdaughter who is not his decision maker, ultimately his who is the POA and needs to come to that conclusion. I agree with current medical management with broad spectrum antibiotics. I would also check the patient's medications as he previously inappropriately took his opioids, which resulted in a hospitalization and altered mental status. I would be more than happy to further discuss with the patient's when available. Chemotherapy will be placed on hold until the patient is medically stable or decision is made to withdraw aggressive treatment moving forward.
[2019-03-06] MEDS: MoRPHine SULFATE 2 MG/ML CARP IV PRN ×3 (10:49→20:20)
[2019-03-06 11:01] VITALS: BP 113/81; TEMP 96.8
--- NOTE | 2019-03-06 11:38 | Consultation Report ---
DATE OF CONSULTATION: 03/06/2019 REQUESTING: Bambi Hernandez PA-C. REASON FOR CONSULTATION: Atrial fibrillation with rapid ventricular response, mild troponin elevation. Dear Ms. Hernandez, It was pleasure to see the patient today in consultation with regards to his atrial fibrillation with rapid ventricular response and mild troponin elevation. He was brought to the Emergency Room due to increasing confusion with a history of prostate cancer and possible metastatic disease versus a lung primary with mets to the 4th rib and L2, status post palliative radiation with ongoing chemotherapy. He had chest discomfort that awoke him at 4:00 a.m. It was right-sided, noted to be tender with pressing over the right anterior chest region. He has had an increasing cough with mucus production and some blood streaking. He denied any hemoptysis. He wears 2.5 liters of oxygen at night, but not during the day. He lives at home with his . He is unable to give a history here in the hospital as he has been sedated, as he is combative and confused along with having significant hypoxemia. His troponin in the ER was 1.14, which is currently trending down. He remains in atrial fibrillation with a rapid ventricular response. The history is obtained from the chart as well as the nursing staff. A complete review of systems is unobtainable. PAST MEDICAL HISTORY: 1. Ascending aortic aneurysm measuring 4.6 cm. 2. Heavily calcified trileaflet aortic valve. 3. Coronary artery disease status post coronary artery bypass grafting x2 in 2003 with a negative stress echo for ischemia at 62% of max predicted heart rate for his age on 02/2018 with a basal inferior and inferior septal scar. 4. Hypertension. 5. Hyperlipidemia. 6. Chronic atrial fibrillation with CHADS2-VASc score of 4, on chronic anticoagulation. 7. A 3.2 x 3.2 cm abdominal aortic aneurysm. 8. Prostate cancer with possible metastasis versus primary lung cancer with metastasis, now with significant hypoxemia and pneumonia. ALLERGIES: TO FENTANYL. OUTPATIENT MEDICATIONS: Reviewed in detail. SOCIAL HISTORY: He stopped smoking in 2010, having smoked 2 packs per day for 30-35 years. 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 FAMILY HISTORY: Dad had open heart surgery in his 60s. Dad of a stroke in his late 70s. He is somnolent with an OxyMask on. PHYSICAL EXAMINATION: VITAL SIGNS: His heart rate is 119. His respirations are 28, his sats are 97% on 10 liters. HEENT: Mildly reduced carotid upstrokes, no evidence of carotid bruits. His sclerae are anicteric. His hearing cannot be assessed. NECK: His jugular venous pressure cannot be assessed. LUNGS: Globally decreased breath sounds with coarse crackles and rhonchi throughout. HEART: Irregularly irregular rhythm. There is soft systolic ejection murmur at the right sternal border. ABDOMEN: Soft, nontender, nondistended. Positive bowel sounds. EXTREMITIES: No clubbing, cyanosis or edema. PSYCHIATRIC: Cannot be assessed. DIAGNOSTIC STUDIES: Outpatient diagnostic studies reviewed. Inpatient diagnostic studies including echocardiogram with mild left ventricular dysfunction in the face of atrial fibrillation with a rapid ventricular response, ascending aorta measured 4.6 cm, PA pressure was 33 mmHg. LABORATORY DATA: His lipase remains elevated. His troponin is trending down. BUN of 18, creatinine 0.52. Sodium 139, potassium 4.1. Lactate is 2.7, albumin is 2.3. IMPRESSION: 1. Atrial fibrillation with rapid ventricular response, which is likely secondary to his underlying physiologic state. 2. Pneumonia, potentially postobstructive due to his underlying malignancy. 3. Primary lung cancer with significant metastatic disease versus metastatic prostate cancer with metastatic disease. 4. Mild left ventricular dysfunction. 5. Coronary artery disease with a small troponin spill on the basis of demand ischemia. At this point, his heart rate is all physiologic due to his underlying stressors including pneumonia and hypoxemia as well as his metastatic disease. He is not a candidate for any intervention from a coronary artery disease standpoint. I would treat him medically. He is not taking p.o. currently and is confused; therefore, we will switch his metoprolol to 5 mg IV q. 6 hours. This can be up titrated over the weekend, to control his heart rate, to 7.5 mg q. 6 hours and even up titrated to 7.5 q. 4 if necessary as his blood pressure allows. We will switch his lisinopril to IV Vasotec 1.25 mg q. 6 hours depending on his blood pressure. This too, if necessary, can be increased to 2.5 mg IV q. 6 hours. We will hold his amlodipine and his statin therapy for now as he is not taking p.o. Additionally, he is going to need adequate pain control and sedation as he becomes combative when he awakes. Oncology was here this morning and it sounds like the family is wishing for a palliative care to potentially even hospice approach. Thank you for allowing us to participate in his care.
[2019-03-06] MEDS ORDERED: ENALAPRILAT 1.25 MG in DEXTROSE 5% 25 ML IV SCH (12:00)
--- NOTE | 2019-03-06 13:55 | Palliative Care Consultation ---
Date of Consultation March 06, 2019 Assessment & Plan (1) Palliative care encounter: This is a 79 year old male presented to the ED with right substernal chest pain and SOB. Patients Troponin was elevated 1.140. 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 Justice and has been undergoing palliative chemotherapy. The patient has received 5 doses of chemo and has been consulted by Dr. Justice during this admission.The patient was diagnosed with Pneumonia and has been treated with IV steroids and antibiotics. Additional PMH includes CAD s/p CABG x2 (2003), HTN, HLD, cardiac aneurysm, AAA, AFib, OA, Gout , RAFAELA, and chronic pain. The patient has quite a poor prognosis and palliative care was consulted to discuss goals of care. -I met with patients and grand-daughter initially, who met me in the hallway. We talked in a family conference room to discuss their goals. I did express needing to meet with the patient afterwards, to ensure appropriate management which they were ok with; however, wanted to be clear that the 3 step- daughters (daughters from the patients first ) did not receive any information. -The patient and POA who is quite ill herself, she had a [facility] ID band on and said she was just discharged and is recovering herself. She expressed that he has suffered enough and she can't see him go through this anymore. She said that he is worse each day and knows he will not get back to his 'normal self'. She stated that activities that brought him lydia included mowing his yard and teetering with their tractor. -Discussed Dr. Justice's conversation and the hospitalist - the pt would like to transition to comfort measures only and forgo any escalation in care. -I met with patient who was nonsensical, confused and not able to participate in any meaningful conversation. -Per nursing, patient was having intermittent hemoptysis. -Patient on oxy mask 9 Liters and really having labored breathing. -While some of his confusion could be encephalopathic in nature related to pneumonia, I agree that a transition to comfort measures is supported in lieu of his extensive disease process with grim prognosis. -Comfort medications ordered and non-essential medications discontinued - already has a IV Morphine order for 2 mg IV Q4 , anticipate frequency to be increased and have a low threshold for starting a Morphine gtt based on his symptoms and presentation. -A POLST form was discussed, completed and signed by the patients indicating DNR/DNI, comfort measures only, no artificial nutrition/hydration and trial abx. -Will continue to follow to provide support to his and additional family members. -PPS: 20% (2) Shortness of breath: (3) Malignant neoplasm of upper lobe, right bronchus or lung: (4) Bony metastasis: (5) Atrial fibrillation: Supervising Physician Co-Signing Physician Notes Late entry for visit performed on 03/06 Chart reviewed, pt seen, collaborated with OVIDIO Piña PE: Pt in mild to mod distress due to SOB - on O2 via oxymask Resp: increased WOB CV: tachycardic Neuro: awake Agree with above note assessment and plan as per OVIDIO Piña - will cont to follow and assist with medical decision making - goal is comfort History of Present Illness Reason for Consultation: goals of care Requesting Physician: Dr. Crain Attending Physician: Kevin Crain MD History of Present Illness This is a 79 year old male presented to the ED with right substernal chest pain and SOB. Patients Troponin was elevated 1.140. 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 Justice and has been undergoing palliative chemotherapy. The patient has received 5 doses of chemo and has been consulted by Dr. Justice during this admission.The patient was diagnosed with Pneumonia and has been treated with IV steroids and antibiotics. Additional PMH includes CAD s/p CABG x2 (2003), HTN, HLD, cardiac aneurysm, AAA, AFib, OA, Gout, RAFAELA, and chronic pain. The patient has quite a poor prognosis and palliative care was consulted to discuss goals of care. Please see A/P for further details. Thank you for involving the palliative care service with this patient. We will follow for symptom management and to continue to assist with goals of care. Allergies Allergy/AdvReac Type Severity Reaction Status Date / Time fentanyl AdvReac Severe delirium Verified 03/05/19 07:07 Home Medications Home Medications Medication Instructions Recorded Confirmed Type aspirin [Aspir-Low] 81 mg PO QAM 10/27/18 03/05/19 History atorvastatin 20 mg PO HS 10/27/18 03/05/19 History cholecalciferol (vitamin D3) 1,000 unit PO QAM 10/27/18 03/05/19 History omega 3-nbb-bff-fish oil [Fish Oil] 1 cap PO QAM 10/27/18 03/05/19 History amlodipine 2.5 mg PO QAM 11/16/18 03/05/19 History lisinopril 20 mg PO HS 11/16/18 03/05/19 History acetaminophen [Tylenol Extra 500 mg PO Q6H PRN 12/08/18 03/05/19 History Strength] metoprolol tartrate 50 mg PO BID 12/08/18 03/05/19 History naloxone 4 mg/actuation nasal spray 1 spray INTNAS Q3M PRN #2 ea 02/26/19 03/05/19 Rx apixaban [Eliquis] 5 mg PO BID 03/05/19 03/05/19 History dexamethasone 4 mg PO QAM 03/05/19 03/05/19 History indomethacin 25 mg PO DAILY PRN 03/05/19 03/05/19 History tmqnvozj-ueg-uihzt-vit K-lycop 1 tab PO QAM 03/05/19 03/05/19 History [Men's Multivitamin] oxycodone 15 mg PO Q6H PRN 03/05/19 03/05/19 History oxycodone [OxyContin] 10 mg PO BID 03/05/19 03/05/19 History Patient History Medical History RAFAELA (obstructive sleep apnea) Elevated troponin (Acute) Pneumonia (Acute) Lung cancer (Chronic) Hyperlipidemia (Chronic) Hypertension (Chronic) Aneurysm of heart (Resolved) FOLLOWS WITH DR. BASURTO>ANEURYSM "SMALL" Cancer (Chronic) PROSTATE-RADIATION SEEDS Osteoarthritis (Chronic) Gout (Chronic) Lung mass (Chronic) NOTED FROM DR. NAVARRO'S RECORDS AAA (abdominal aortic aneurysm) (Chronic) 3.3 cm infrarenal on 01/22/17 Atrial fibrillation (Chronic) Surgical History History of cardiac cath (Resolved) OVER 10 YEARS AGO History of coronary artery bypass graft (Resolved) OVER 10 YEARS AGO/2 VESSELS REPAIR IN [facility] H/O eye surgery (Resolved) RT (CANCER REMOVED) History of tooth extraction (Resolved) History of appendectomy (Resolved) History of colonoscopy (Resolved) H/O prostate biopsy (Resolved) History of repair of rotator cuff (Resolved) LEFT History of cataract surgery (Resolved) RT/LEFT Family History Other Coronary heart disease Hypertension Prostate cancer Stroke Social History Preferred Language: [place] Communication Ability: Impaired Visual Impairment: No Limitations Household Chores Required: No Beliefs That Will Affect Care: None marital status: Current Living Situation: Spouse Other Information That Helps Us Care for You: No Feels Safe at Home: Yes Safety Concerns: Feels Safe At This Time Smoking Status: Former smoker Tobacco Type: cigarettes ; Cigarettes Per Day: 40 ; Second Hand Exposure: No ; Hx Alcohol Use: No Hx Substance Use: No Review of Systems Review of Systems: Unobtainable due to reduced consciousness Physical Exam Constitutional: + ill appearing and + in distress Eyes: PERRL, conjunctivae normal, anicteric sclerae ENMT: external ear and nose normal, oropharynx normal Respiratory: + labored breathing, + uses accessory muscles and + cough Auscultation: + diminished lung sounds and + rhonchi Cardiovascular: RRR, no murmur, no edema Gastrointestinal (Abdomen): normal bowel sounds, soft, nontender, no hepatosplenomegaly Skin: no rashes, warm and dry Psychiatric: Orientation: alert and oriented to person Lymphatic: no cervical or axillary lymphadenopathy Results & Data Vital Signs (Past 12 Hours) Vital Signs Temp Pulse Pulse Resp BP Pulse Ox Pulse Ox 03/06/19 11:00 36 C L 117 H 30 H 113/81 92 03/06/19 09:39 91 03/06/19 09:19 103 H 03/06/19 07:50 36.6 C 119 H 28 H 135/87 97 03/06/19 07:10 102 H 24 96 03/06/19 03:26 36.2 C L 107 H 24 98/53 L 91 03/06/19 02:09 101 H 26 H 91 PG Care Time/CCT Total # of Minutes Spent Total Time Spent with Patient: Total time spent is greater than 50% in coordination of care (as documented) at patient's floor/unit and/or counseling patient: 70 Time Spent Midlevel total time spent 70 minutes with > 50% of that time spent assessing patient, discussing goals of care with the patient , completing a POLST form, and providing symptom management.
--- NOTE | 2019-03-06 15:33 | Hospitalist Progress Note ---
Date of Service March 06, 2019 Assessment & Plan (1) Hypoxia: (2) Shortness of breath: (3) Pneumonia: Sepsis--POA Metabolic Encephalopathy --CTA--Multifocal consolidation with dense involvement of the right upper lobe. This represents significant interval increase in solid consolidation since the prior exam, which previously demonstrated findings suspicious for malignancy. This may indicate significant progression of malignancy or a superimposed multifocal pneumonia. Consider bronchoscopy. Mediastinal lymphadenopathy is unchanged from prior exam. Destructive osseous lesion in the posterior right fourth rib with decreased associated extrapleural/pleural base mass. Pathologic moderate to severe compression fracture of L2 with a presumed underlying metastatic lesion as seen on prior PET/CT. The compression deformity may have increased from November. Increased size of the known right hepatic lobe metastasis, consistent with progression of disease --On Oxy mask --Was started on Zosyn, vancomycin, nebs, IV fluids --Discussed with Oncology --Prognosis is very poor --Palliative care consulted --Transitioned to Comfort measures --Patient's /POA agrees with plan (comfort measures) and is updated of the patient's condition (4) Elevated troponin: Type 2 [place] secondary to supply-demand mismatch--Secondary to Tati RVR, Hypoxia, Malignancy Was on aspirin, metoprolol, statin Unable to take any PO Meds Appreciate Cardiology Input (5) Atrial fibrillation: Was on metoprolol, Eliquis Transitioned to comfort measures (6) Malignant neoplasm of upper lobe, right bronchus or lung: H/O prostate cancer H/O non-small cell lung cancer, RUL mass with invasion of the right fourth rib, with metastasis to liver and lumbar spine S/P palliative radiation. chemotherapy held Appreciate Oncology Input: Dr. Duarte (7) RAFAELA (obstructive sleep apnea): Pt is on oxygen 2.5L HS for h/o RAFAELA and is not on CPAP, otherwise not on oxygen during day. Supplemental oxygen HS (8) Hypertension: Was on amlodipine, metoprolol (9) Hyperlipidemia: Was on atorvastatin DVT Px: Was on apixaban Disposition: Very Poor Prognosis Transitioned to comfort measures Family updated Palliative Care following Subjective Patient is seen and examined at bedside Unable to obtain any reasonable history Patient is drowsy/lethargic this morning, does not respond to stimulus Had Hemoptysis today per RN Discussed with oncology Dr. Justice, patient's family-- --POA in detail Also discussed with palliative care today Plan to transition to comfort measures secondary to very poor prognosis Patient in respiratory distress this morning, goal is comfort as per patient's family. Patient is transitioned to comfort measures Currently on Oxy Mask Review of Systems Review of Systems: Unobtainable due to reduced consciousness Physical Exam Physical Exam: Physical Exam: Vitals signs as noted above General Appearance:Moderately built and nourished, Respiratory distress, Unresponsive Head: normocephalic, Atraumatic Eyes: normal inspection Neck: supple, Trachea midline Respiratory/Chest: Decreased breath sounds, +coarse Rhonchi, crackles,+accessory muscle use Cardiovascular: Irregularly Irregular Rhythm, + systolic murmur, +Tachycardic Abdomen/GI:Soft, Non tender, Bowel sounds present Extremities/Musculoskelatal:normal inspection, no edema Neurologic/Psych:Reduced consciousness, could not perform exam Skin: normal color, warm Results & Data Vital Signs (Past 12 Hours) Vital Signs Temp Pulse Pulse Resp BP Pulse Ox Pulse Ox 03/06/19 11:00 36 C L 117 H 30 H 113/81 92 03/06/19 09:39 91 03/06/19 09:19 103 H 03/06/19 07:50 36.6 C 119 H 28 H 135/87 97 03/06/19 07:10 102 H 24 96 03/06/19 03:26 36.2 C L 107 H 24 98/53 L 91 Laboratory Results Short CBC 03/06/19 Range/Units 05:42 WBC 2.93 L (4.8-10.8) K/uL Hgb 9.1 L (14.0-18.0) g/dL Hct 26.9 L (42-52) % Plt Count 122 L (130-400) K/uL BMP 03/06/19 05:42 Sodium 139 Potassium 4.1 Chloride 107 Carbon Dioxide 28 BUN 18 Creatinine 0.52 L Glucose 89 Calcium 8.1 L Cardiac Enzymes 03/05/19 Range/Units 20:02 Troponin I 0.765 H* (0-0.045) ng/ml Liver Function 03/06/19 Range/Units 05:42 Total Bilirubin 1.4 H (0.2-1) mg/dl AST 16 (15-37) U/L ALT 30 (12-78) U/L Alkaline Phosphatase 62 (45-117) U/L Albumin 2.3 L (3.4-5.0) gm/dl (1) Pneumonia Laterality: right Lung location: upper lobe of lung Pneumonia type: due to other aerobic Gram-negative bacteria Qualified Code(s): J15.6 - Pneumonia due to other Gram-negative bacteria
[2019-03-06 16:05] VITALS: PULSE 110; O2SAT 98
[2019-03-06] MEDS ORDERED: SCOPOLAMINE 1.5 MG TDSY TD ONE (21:00)
[2019-03-06] MEDS ORDERED: MoRPHine SULFATE 4 MG/ML 1 ML CARP\\VIAL ONE (22:21)
[2019-03-06] MEDS ORDERED: LORazepam 2 MG/4 ML VIAL ONE (22:22)
[2019-03-06] MEDS: CHECK SCOPOLAMINE PATCH PLACEMENT SCH (23:58)
[2019-03-07] MEDS: ATROPINE SULFATE 1% OP SOLN 2 ML BTL SL PRN ×2 (01:04→07:41)
[2019-03-07] MEDS: MoRPHine SULFATE 4 MG/ML 1 ML CARP\\VIAL IV PRN ×6 (01:15→18:21)
[2019-03-07] MEDS: LORazepam 1 MG/2 ML VIAL IV PRN ×2 (02:49→18:43)
[2019-03-07] MEDS: CHECK SCOPOLAMINE PATCH PLACEMENT SCH ×3 (07:43→23:58)
--- NOTE | 2019-03-07 09:42 | Progress Note ---
DATE: 03/07/2019 DIAGNOSES: 1. Failing performance status. 2. Pneumonia, right upper lobe. 3. Metastatic nonsmall cell lung cancer with progression. 4. Abdominal aortic aneurysm. 5. Hypoalbuminemia. SUBJECTIVE: The patient is a pleasant but unfortunate 79-year-old gentleman well known to [facility], currently under my care with metastatic nonsmall cell lung cancer. The patient recently started combination of paclitaxel, carboplatin and Avastin, last receiving chemotherapy this past Saturday. The patient had presented to the [facility] Emergency Room with right-sided chest wall pain. Radiographic studies done on admission confirmed disease progressing as well as emerging pneumonia. The patient continues to be somnolent, minimally responsive to verbal stimuli. Family has decided to proceed with palliative measures. The patient appears to be comfortable with nonrebreather. Nursing reports no overnight difficulties otherwise. PHYSICAL EXAMINATION: GENERAL: Shows no acute distress. VITAL SIGNS: Temperature 36, pulse 110, respiratory rate 24, blood pressure 113/81. SKIN: Without rash or lesion. HEENT: Oral mucosa is dry. No buccal lesions or ulcerations. NECK: Supple. Trachea midline. HEART: Tachy, but regular. LUNGS: Coarse rhonchi heard throughout all abdalla. ABDOMEN: Soft, nontender, nondistended. EXTREMITIES: No clubbing, cyanosis or edema. NEUROLOGIC: The patient is obtunded. IMPRESSION: 1. End-stage metastatic nonsmall cell lung cancer. 2. Failing performance status. 3. Right upper lobe pneumonia. 4. Hypoalbuminemia. PLAN: Was informed by the hospitalist and now by family members at bedside this morning, the patient has entered into palliative care. He is minimally responsive, does arouse to noxious stimuli. He appears to be comfortable otherwise, continues nonrebreather. Difficult to determine his survival at this point, I would estimate days to a week or two. We will suspend further chemotherapy at this point. I have nothing further to add and hope the patient passes with comfort and dignity. We will continue to periodically check on him during his stay. Conceivably, Kirill may be sent to a skilled nursing if he survives longer than few days. MTDD
[2019-03-07] MEDS ORDERED: VANCOMYCIN TROUGH ONE (14:30)
--- NOTE | 2019-03-07 18:34 | Hospitalist Progress Note ---
Date of Service March 07, 2019 Assessment & Plan (1) Hypoxia: (2) Shortness of breath: (3) Pneumonia: Sepsis--POA Metabolic Encephalopathy --CTA--Multifocal consolidation with dense involvement of the right upper lobe. This represents significant interval increase in solid consolidation since the prior exam, which previously demonstrated findings suspicious for malignancy. This may indicate significant progression of malignancy or a superimposed multifocal pneumonia. Consider bronchoscopy. Mediastinal lymphadenopathy is unchanged from prior exam. Destructive osseous lesion in the posterior right fourth rib with decreased associated extrapleural/pleural base mass. Pathologic moderate to severe compression fracture of L2 with a presumed underlying metastatic lesion as seen on prior PET/CT. The compression deformity may have increased from November. Increased size of the known right hepatic lobe metastasis, consistent with progression of disease --On Oxy mask --Was started on Zosyn, vancomycin, nebs, IV fluids --Discussed with Oncology --Prognosis is very poor --Palliative care consulted --Transitioned to Comfort measures --Patient's /POA agrees with plan (comfort measures) and is updated of the patient's condition --Continue current medications (4) Elevated troponin: Type 2 [place] secondary to supply-demand mismatch--Secondary to Tati RVR, Hypoxia, Malignancy Was on aspirin, metoprolol, statin Unable to take any PO Meds Appreciate Cardiology Input (5) Atrial fibrillation: Was on metoprolol, Eliquis Transitioned to comfort measures (6) Malignant neoplasm of upper lobe, right bronchus or lung: H/O prostate cancer H/O non-small cell lung cancer, RUL mass with invasion of the right fourth rib, with metastasis to liver and lumbar spine S/P palliative radiation. chemotherapy held Appreciate Oncology Input: Dr. Duarte (7) RAFAELA (obstructive sleep apnea): Pt is on oxygen 2.5L HS for h/o RAFAELA and is not on CPAP, otherwise not on oxygen during day. Supplemental oxygen HS (8) Hypertension: Was on amlodipine, metoprolol (9) Hyperlipidemia: Was on atorvastatin DVT Px: Was on apixaban Disposition: Very Poor Prognosis Transitioned to comfort measures Family updated Palliative Care following Subjective Patient is seen and examined at bedside Confused intermittent No distress on exam Denies chest pain, SOB today Family at bedside Oncology following On comfort measures Review of Systems Review of Systems: Unobtainable due to reduced consciousness Physical Exam Physical Exam: Physical Exam: Vitals signs as noted above General Appearance:Moderately built and nourished, No apparent distress Head: normocephalic, Atraumatic Eyes: normal inspection Neck: supple, Trachea midline Respiratory/Chest: Decreased breath sounds, +coarse Rhonchi, crackles Cardiovascular: Irregularly Irregular Rhythm, + systolic murmur, +Tachycardic Abdomen/GI:Soft, Non tender, Bowel sounds present Extremities/Musculoskelatal:normal inspection, no edema Neurologic/Psych:Reduced consciousness, could not perform exam Skin: normal color, warm (1) Pneumonia Laterality: right Lung location: upper lobe of lung Pneumonia type: due to other aerobic Gram-negative bacteria Qualified Code(s): J15.6 - Pneumonia due to other Gram-negative bacteria
[2019-03-08] MEDS: MoRPHine SULFATE 4 MG/ML 1 ML CARP\\VIAL IV PRN (00:17)
--- NOTE | 2019-03-08 07:36 | Discharge Summary ---
Date of Service March 08, 2019 Admission HPI Per Admitting Provider This is a 79 yo M with PMHx of prostate adenocarcinoma with possible metastasis vs lung primary with mets to the 4th right rib, with metastasis to L2 pathological fracture, s/p palliative radiation and currently undergoing chemotherapy, follows with pain management for chronic narcotic use for palliation, CAD s/p bypass grafting x2 in 2004, HTN, HLD, cardiac aneurysm, AAA measuring 4.8 cm in 2017, distal common iliac aneurysm measuring 1.7 cm, A. fib on eliquis, osteoarthritis, gout, obstructive sleep apnea, who presents with right substernal chest pain and shortness of breath. Patient was found to have an elevated troponin of 1.140 in the ER. Patient notes that his chest pain woke him from sleep at 4 AM today, right- sided, noted as tender with pressing over the right anterior chest region. He does not have a chest Mediport. He reports that right side of chest is more sore with cough. He also notes that he has had a rattling cough for a few days now, bringing up clear to white mucus, occasionally with some blood streaking. He denies coughing up blood clots or diffuse bleeding. He reports that he does wear 2.5 L supplemental O2 at bedtime, but not throughout the day, but is currently requiring it here. He denies any fevers or chills or sweats. He reports doing well overall at home, lives with his . Overall he feels fairly close to baseline. Afebrile, no WBC, coarse breath sounds, elevated troponin. Admit for chest pain and possible superimposed pneumonia with hypoxia. Admission Exam Per Admitting Provider General: awake, alert, no apparent distress Head: Normocephalic, atraumatic ENT: PERRL, EOMI, no pharyngeal exudate, mucous membranes moist Chest: 2.5 mL via NC, coarse breath sounds throughout, worse in the right lobe compared to the left, slight wheezing. Cardiac: Irregularly irregular, heart rate in the 130s, no murmur, no JVD, normal peripheral pulses, good capillary refill Abdominal: NABS x 4 quadrants, soft, nontender to palpation, no rebound, guarding or tenderness Extremities: Normal inspection, no peripheral edema or erythema, calfs nontender to palpation Psych: Normal mood and affect Neuro: AAO x 3, no gross motor deficits, speech is clear, no peripheral sensory deficits Principal Diagnosis Metastatic known small cell lung cancer Sepsis Metabolic encephalopathy Discharge Data Allergies Allergy/AdvReac Type Severity Reaction Status Date / Time fentanyl AdvReac Severe delirium Verified 03/05/19 07:07 Consultations 03/05/19 08:40 ED Decision to Admit Stat 03/05/19 08:49 Consult Case Management - Discharge Planning Routine 03/05/19 12:09 Consult Cardiology Routine 03/05/19 14:17 Consult Oncology Routine 03/05/19 15:01 Consult Hospitalist Routine 03/06/19 13:31 Consult Palliative Care Routine Procedures Performed Chest CTA: 1. Multifocal consolidation with dense involvement of the right upper lobe. This represents significant interval increase in solid consolidation since the prior exam, which previously demonstrated findings suspicious for malignancy. This may indicate significant progression of malignancy or a superimposed multifocal pneumonia. Consider bronchoscopy. 2. Mediastinal lymphadenopathy is unchanged from prior exam. 3. Destructive osseous lesion in the posterior right fourth rib with decreased associated extrapleural/pleural base mass. 4. Pathologic moderate to severe compression fracture of L2 with a presumed underlying metastatic lesion as seen on prior PET/CT. The compression deformity may have increased from November. 5. Increased size of the known right hepatic lobe metastasis, consistent with progression of disease Ordered Studies 03/05/19 12:08 CT angio chest PE protocol Stat Hospital Course (1) Hypoxia: (2) Shortness of breath: (3) Pneumonia: Sepsis--POA Metabolic Encephalopathy --CTA--Multifocal consolidation with dense involvement of the right upper lobe. This represents significant interval increase in solid consolidation since the prior exam, which previously demonstrated findings suspicious for malignancy. This may indicate significant progression of malignancy or a superimposed multifocal pneumonia. Consider bronchoscopy. Mediastinal lymphadenopathy is unchanged from prior exam. Destructive osseous lesion in the posterior right fourth rib with decreased associated extrapleural/pleural base mass. Pathologic moderate to severe compression fracture of L2 with a presumed underlying metastatic lesion as seen on prior PET/CT. The compression deformity may have increased from November. Increased size of the known right hepatic lobe metastasis, consistent with progression of disease --On Oxy mask --Was started on Zosyn, vancomycin, nebs, IV fluids --Discussed with Oncology --Prognosis is very poor --Palliative care consulted --Transitioned to Comfort measures --Patient's /POA agrees with plan (comfort measures) and is updated of the patient's condition Patient is on comfort measures only. Patient on March 08, 2019 at 7:22 AM. Family updated. (4) Elevated troponin: Type 2 UT secondary to supply-demand mismatch--Secondary to Tati RVR, Hypoxia, Malignancy Was on aspirin, metoprolol, statin Unable to take any PO Meds Appreciate Cardiology Input (5) Atrial fibrillation: Was on metoprolol, Eliquis Transitioned to comfort measures (6) Malignant neoplasm of upper lobe, right bronchus or lung: H/O prostate cancer H/O non-small cell lung cancer, RUL mass with invasion of the right fourth rib, with metastasis to liver and lumbar spine S/P palliative radiation. chemotherapy held Appreciate Oncology Input: Dr. Duarte (7) RAFAELA (obstructive sleep apnea): Pt is on oxygen 2.5L HS for h/o RAFAELA and is not on CPAP, otherwise not on oxygen during day. Supplemental oxygen HS (8) Hypertension: Was on amlodipine, metoprolol (9) Hyperlipidemia: Was on atorvastatin DVT Px: Was on apixaban Disposition: Patient Total Time Total Time Spent Total Time Spent (In Minutes): 24 minutes Total Time Includes: Examination of the Patient, Discharge Planning, Medication Reconciliation and Other Discharge Plan Discharge Items Patient Disposition: Admission Data Admit Date/Time: 03/05/19 14:05 Service: Medical Other DC Date/Time DO NOT enter until pt leaves facility: 03/08/19 11:15
== END 2019-03-08 11:15 | disposition expired | DRG 871 ==
LOC: ED 06:28 → 2E 06:28 → SUATTDRO 14:05 → 4W 03-06 15:08